=== PATIENT | male | born 1960 | race Caucasian/White ===

== ENCOUNTER 2017-10-18 00:44 | Emergency (ER) | payer OTHER ==
[~2017-10-18] VITALS: Ht 175.2 cm; Wt 68.0 kg
[~2017-10-18 00:44] MED LIST: ASPI-COR81 MG PO; HUMALOG100 U/ML SC; HYDROCODONE BIT1 T11 PO; MOTRIN800 MG PO
[2017-10-18 01:22] LABS: BASO # 0.1 10*3/uL (0.0-0.1); EOS # 0.1 10*3/uL (0.0-0.4); EOS % 1.4 % (1.0-4.0); HEMATOCRIT 37.4 % (42.0-52.0); HEMOGLOBIN 13.2 g/dl (14.0-18.0); LYMPH # 1.4 10*3/uL (1.3-4.4); LYMPH % 28.5 % (27.0-41.0); MEAN CELL VOLUME 90.8 fl (80.0-94.0); MEAN CORPUSCULAR HGB CONC 35.3 g/dl (33.0-37.0); MEAN PLATELET VOLUME 10.3 fl (9.6-12.3); MONO # 0.4 10*3/uL (0.1-1.0); MONO % 7.6 % (3.0-9.0); NEUT % 61.3 % (47.0-73.0); PLATELET COUNT AUTOMATED 183 10*3/uL (130-400); RED BLOOD COUNT 4.12 10*6/uL (4.50-5.90); RED CELL DISTRI WIDTH 12.7 % (0-14.5); WHITE BLOOD COUNT 4.9 10*3/uL (4.8-10.8)
[2017-10-18 01:43] LABS: ALBUMIN 3.4 gm/dl (3.1-4.5); ALKALINE PHOSPHATASE 178 U/L (45-117); BUN 16 mg/dl (7-24); CHLORIDE 106 mmol/L (98-107); CREATININE 0.89 mg/dL (0.70-1.30); POTASSIUM 3.7 mmol/L (3.5-5.1); SGOT/AST 17 IU/L (3-35); SGPT/ALT 20 U/L (12-78); SODIUM 140 mmol/L (136-145); TOTAL PROTEIN 6.2 gm/dL (6.4-8.2)
[2017-10-18 01:44] LABS: TROPONIN I < 0.015 ng/ml (<0.045)
[2017-10-18 02:40] LABS: BILIRUBIN NEGATIVE (NEGATIVE); BLOOD TRACE-INTACT (NEGATIVE); CLARITY CLEAR (CLEAR); COLOR YELLOW (YELLOW); GLUCOSE 3+ (NEGATIVE); KETONE NEGATIVE (NEGATIVE); LEUKO ESTERASE NEGATIVE (NEGATIVE); NITRITE NEGATIVE (NEGATIVE); PH 6.5 (5.0-9.0); SPECIFIC GRAVITY <= 1.005 (1.005-1.030)
[2017-10-18 02:47] LABS: BACTERIA TRACE; EPITHELIAL CELLS 0-2; WBC 0-2 wbc/hpf (0-5)
== END 2017-10-18 02:56 | disposition home or self-care (01) ==
LOC: ED 00:44
PROVIDERS: Emergency Medicine Emergency Medical Services
DX: G44.209 Tension-type headache, unspecified, not intractable (principal); F17.200 Nicotine dependence, unspecified, uncomplicated; Z91.040 Latex allergy status; Z79.82 Long term (current) use of aspirin; Z88.8 Allergy status to other drugs, medicaments and biological substances

== ENCOUNTER 2018-08-07 08:56 | Inpatient (IN) | payer OTHER ==
[~2018-08-07] VITALS: Ht 177.8 cm; Wt 63.2 kg
[2018-08-07] VITALS (32 sets, daily range): BP systolic 86–122; BP diastolic 37–63
--- NOTE | ~2018-08-07 | O ---
[place], [place] OPERATIVE NOTE [id number] UN[facility] #: [id number] ROOM: [facility]- DOCTOR: DENG MCINTOSH,CARLOS BIRTHDATE: [birth year] DOS: 08/09/2018 INDICATION: This is a 57-year-old gentleman, who has presented with diabetic ketoacidosis, admitted with multiple episodes of hematemesis, diabetes, hyperglycemia has been taking care of. He has been stabilized. PROCEDURE: Today's procedure part of investigation of hematemesis is panendoscopy plus photographic series and biopsy. PREMEDICATION: Propofol. SCOPE: Olympus forward-viewing gastroscope Q10 video. REPORT: After putting the patient in the left lateral position and application of lubricant to the scope, the scope was introduced. Thereafter, under direct visualization, advanced through the length of esophagus without difficulty. Distal esophageal ulcerations, which is occupying the whole lumen at the lower esophagus was photographed. This is secondary to reflux, hiatal hernia, approximately 3.5 cm was noticed. Gastric pouch was entered. Gastritis seen. Antral biopsy obtained. Duodenal bulb, second and third part within normal limits. The patient was gradually extubated. The distal ulcer, esophageal ulcers were not agitated due to apparent recent bleed. The patient extubated, tolerated procedure well. IMPRESSION: Distal esophageal ulcerations, hiatal hernia of 3.5 cm, gastritis, status post biopsy. PLAN AND DISCUSSION: This patient requires to remain on Protonix 40 mg daily. Extra Strength Gaviscon 1 at bedtime and 1800 ADA diet and follow up as outpatient. CARLOS VILCHIS MD CM:OPRECORD:OPERATIVE NOTE [id number] [id number] CARLOS VILCHIS MD 08/09/18 1431 interface
--- NOTE | ~2018-08-07 | WRIGHTHP ---
[place], [place] PATIENT HISTORY AND PHYSICAL EXAM NAME: ADÁN BROWN [facility] #: [id number] UNIT #: [id number] ROOM: 426 DOCTOR: DAVID EVERETT MD BIRTHDATE: [birth year] DOS: 08/07/2018 HISTORY OF PRESENT ILLNESS: The patient has been admitted to hospital with repeated vomiting and unable to keep anything in the abdomen for the last 3-4 days and he is a known case of insulin-dependent diabetes mellitus and he came to Emergency Department where he was found to have acute ketoacidosis with renal failure and uncontrolled diabetes mellitus and needed to be admitted to the hospital. ALLERGIES: He has history of allergic to ASPIRIN and HUMALOG. PAST MEDICAL HISTORY: Diabetes mellitus, tension headache. PAST SURGICAL HISTORY: Hernia repair 2 times, kidney stone and left elbow surgery. SOCIAL HISTORY: The patient does not drink any alcohol. Does not smoke. Does not use any drugs. FAMILY HISTORY: History of cancer and myocardial infarction in the family. The patient is feeling very weak and miserable due to repeated vomiting and he also vomited little bit blood in the vomitus today. It could be due to severe irritation due to vomiting. LABORATORY STUDIES: His electrocardiogram done in the emergency showed prolonged QT interval at baseline wander in lead V1. Lactic acid base level is 5.5, which is high. Protime 12.12. Comprehensive metabolic profile showed glucose 875, BUN 49, creatinine 2.52, GFR 27, potassium 5.3, sodium 138, CO2 level is 10 which is low. Bilirubin is 2.2, total protein 6.3, alkaline phosphatase 184. CK-MB and troponin levels are normal. Chest x-ray is normal. A pH is 7.54 indicating acidosis. CBC showed white count 25,300; hemoglobin 12.2; hematocrit 36.9; 92% neutrophils; 4% lymphocyte. Ketones are positive in 1-16 dilution. Gastric occult blood is positive. CT of the abdomen shows no acute fatty liver. Hemoglobin A1c 11.1 indicating the patient is having very uncontrolled diabetes mellitus. Repeat basic metabolic profile showed glucose 834, BUN 52, creatinine 2.53, GFR 26. Urine examination showed 3+ glucose, 1+ bilirubin, 3+ ketones and 2+ bacteria. PHYSICAL EXAMINATION: VITAL SIGNS: His blood pressure is 111/56, pulse 104, respirations 18, temperature 99.5. DIAGNOSES: Diabetic ketoacidosis and glucose toxicity due to uncontrolled diabetes, dehydration and renal failure, leukocytosis and urinary tract infection. The patient is being treated with pantoprazole 40 mg IV daily, sodium chloride IV at rapid rate to improve his dehydration and also his renal failure. Insulin regular, Humulin IV drip. Reglan 10 mg IV. [place], [place] PATIENT HISTORY AND PHYSICAL EXAM [id number] UN[facility] #: [id number] ROOM: 426 DOCTOR: DAVID EVERETT MD BIRTHDATE: [birth year] DAVID EVERETT MD CM:HISPHYS:PATIENT HISTORY AND PHYSICAL EXAMINATION [id number] DAVID EVERETT MD 08/21/18 0655 interface
--- NOTE | ~2018-08-07 | CON ---
[place], [place] REPORT OF CONSULTATION NAME: ADÁN BROWN [facility] #: [id number] UNIT #: [id number] ROOM: [facility] DOCTOR: CARLOS VILCHIS MD BIRTHDATE: [birth year] DOS: 08/08/2018 GASTROENDOSCOPIC CONSULTATION HISTORY OF PRESENT ILLNESS: A 57-year-old patient who has presented with nausea, vomiting, diabetic ketoacidosis, hematemesis and coffee-ground emesis. The patient has been kept in ICU for past few days. His original H and H was 12.2 and 36.9. His platelet has been normal. His comprehensive metabolic panel; initial glucose was 875 with elevated BUN and creatinine 49 and 2.9, GFR of 33, electrolyte imbalance and troponin negative. CBC differential periodically followed up and CT scan of the chest, abdomen and pelvis was obtained; severe fatty liver, no obstruction, was otherwise normal noticed. His urine culture was negative. Basic metabolic panel was reassessed. Corrections have been undertaken. Hypernatremia has been noticed post normal saline infusions. PAST MEDICAL HISTORY: Diabetes mellitus and cephalalgia. PAST SURGICAL HISTORY: Renal lithiasis urologic management, hernia repairs. ALLERGIES: TO ASPIRIN AND HUMALOG. SOCIAL HISTORY: Nonsmoker, nonalcohol consumer. FAMILY HISTORY: Coronary artery disease and multiple carcinomas. REVIEW OF SYSTEMS: HEENT: Denies double vision or blurred vision. RESPIRATORY: Denies acute shortness of breath. CARDIOVASCULAR: Denies acute chest pain. DIGESTIVE SYSTEM: Nausea and vomiting, which is under control of antiemetics as well as Protonix IV double-dose 40 mg each. PHYSICAL EXAMINATION: GENERAL: Relatively frail patient. HEENT: Head - normocephalic, nontraumatic. Mouth and buccal mucosa benign. NECK: Supple, no thyromegaly, no cervical lymphadenopathy. CHEST: Symmetric anatomy, equal expansion. No wheeze, no rhonchi. HEART: Normal sinus rhythm, no gallop, no murmur. ABDOMEN: Soft. No hepato-organomegaly. Bowel sounds within normal limit. No rebound effect. EXTREMITIES: No cyanosis, no pedal edema. NEUROLOGIC: Alert and oriented to time, place, person. IMPRESSION: Hematemesis and borderline drop in hemoglobin and hematocrit. PLAN AND DISCUSSION: Since we are unaware of the status of his stomach as well as need of PPI chronic therapy or otherwise, we are going to organize the EGD tomorrow now that his hyperglycemia is under control. Other adjunctive diagnoses as outlined above in paragraph of past medical and surgical history. [place], [place] REPORT OF CONSULTATION [facility] [id number] #: [id number] ROOM: [facility] DOCTOR: CARLOS VILCHIS MD BIRTHDATE: [birth year] CARLOS VILCHIS MD CM:CONSTR:REPORT OF CONSULTATION 1436 08/09/18 0036 interface
--- NOTE | ~2018-08-07 | EKG ---
[place], [place] ELECTROCARDIOGRAM REPORT NAME: ADÁN BROWN UNIT #: [id number] ROOM: [facility] DOCTOR: YOSI DRAFT REPORT BIRTHDATE: [birth year] [facility] Test Date: 2018-08-07 Test Time: 09:13:47 Pat Name: ADÁN BROWN Department: Room: [facility] Gender: M Commission Broker: TARA : 1960 Requested By: SUNNY CORONEL Order Number: [id number] Reading MD: Chase Garrido MD Measurements Intervals [place] Rate: 114 P: 67 [place]: 148 QRS: 80 QRSD: 110 T: 69 QT: 376 QTc: 518 Interpretive Statements Sinus tachycardia RSR' in V1 or V2, right VCD or RVH Prolonged QT interval Baseline wander in lead(s) V1 Electronically Signed On 08-08-2018 4:15:39 PDT by Chase Garrido MD CM:EKGRPT:ELECTROCARDIOGRAM REPORT 2 0415 SUNNY CORONEL EPIPHANY DRAFT REPORT SUNNY CORONLE
[~2018-08-07 08:56] MED LIST changes: -ASPI-COR81 MG PO; +ASPIRIN ADULT L81 MG PO
[2018-08-07 09:20] LABS: HEMATOCRIT 36.9 % (42.0-52.0); HEMOGLOBIN 12.2 g/dl (14.0-18.0); MEAN CELL VOLUME 98.1 fl (80.0-94.0); MEAN CORPUSCULAR HGB 32.4 pg (27.0-31.0); MEAN CORPUSCULAR HGB CONC 33.1 g/dl (33.0-37.0); MEAN PLATELET VOLUME 10.8 fl (9.6-12.3); PLATELET COUNT AUTOMATED 216 10*3/uL (130-400); RED BLOOD COUNT 3.76 10*6/uL (4.50-5.90); RED CELL DISTRI WIDTH 13.1 % (0-14.5); WHITE BLOOD COUNT 25.3 10*3/uL (4.8-10.8)
[2018-08-07 09:29] LABS: ACT PARTIAL THROMBO TIME 24.1 SECONDS (20.8-31.5); INTERNATIONAL NORM RATIO 1.1 (2.0-3.5)
[2018-08-07 09:36] LABS: ALBUMIN 3.4 gm/dl (3.1-4.5); ALKALINE PHOSPHATASE 184 U/L (45-117); BUN 49 mg/dl (7-24); CHLORIDE 100 mmol/L (98-107); CPK 82 U/L (39-308); CREATININE 2.51 mg/dL (0.70-1.30); LIPASE 73 U/L (73-393); POTASSIUM 5.3 mmol/L (3.5-5.1); SGOT/AST 14 IU/L (3-35); SGPT/ALT 28 U/L (12-78); SODIUM 138 mmol/L (136-145); TOTAL PROTEIN 6.3 gm/dL (6.4-8.2)
[2018-08-07 09:38] LABS: TROPONIN I < 0.015 ng/ml (<0.045)
[2018-08-07 09:49] LABS: BURR CELLS FEW; PLATELET SUFFICIENCY NORMAL (NORMAL); POLYCHROMASIA SLIGHT; TOTAL CELLS COUNTED 100 #CELLS
[2018-08-07 12:32] LABS: CREATININE 2.53 mg/dL (0.70-1.30)
[2018-08-07 12:32] LABS: HEMATOCRIT 33.1 % (42.0-52.0); HEMOGLOBIN 11.1 g/dl (14.0-18.0)
[2018-08-07 14:52] LABS: BILIRUBIN 1+ (NEGATIVE); BLOOD TRACE-INTACT (NEGATIVE); CLARITY CLEAR (CLEAR); COLOR YELLOW (YELLOW); GLUCOSE 3+ (NEGATIVE); KETONE 3+ (NEGATIVE); LEUKO ESTERASE NEGATIVE (NEGATIVE); NITRITE NEGATIVE (NEGATIVE); UROBILINOGEN 0.2 E.U./dl (0.2-1.0)
[2018-08-07] MEDS ORDERED: LIPITOR10 MG PO (14:52)
[2018-08-07] MEDS ORDERED: HUMULIN N100 UNIT/1 SQ (14:57)
[2018-08-07] MEDS ORDERED: HUMALOG100 UNIT/2 SQ (14:59)
[2018-08-07 15:00] LABS: BACTERIA 2+; EPITHELIAL CELLS 0-3; RBC 0-2 rbc/hpf (0-2); WBC 0-2 wbc/hpf (0-5)
[2018-08-07] MEDS ORDERED: GOOD NEIGHBOR150 M1 PO (15:00)
[2018-08-07 16:16] LABS: CREATININE 2.51 mg/dL (0.70-1.30); PHOSPHOROUS 1.3 mg/dL (2.5-4.9)
[2018-08-07 16:17] LABS: POTASSIUM 3.7 mmol/L (3.5-5.1)
[2018-08-07 18:57] LABS: HEMATOCRIT 31.9 % (42.0-52.0); HEMOGLOBIN 11.3 g/dl (14.0-18.0)
[2018-08-07 20:31] LABS: CREATININE 2.2 mg/dL (0.70-1.30); POTASSIUM 3.6 mmol/L (3.5-5.1)
[2018-08-08] VITALS: BP 101/57
[2018-08-08 01:08] LABS: CREATININE 1.79 mg/dL (0.70-1.30); POTASSIUM 4.1 mmol/L (3.5-5.1)
[2018-08-08 04:00] VITALS: BP 105/65
[2018-08-08 04:50] LABS: BASO % 0.2 % (0.0-1.0); EOS % 0.1 % (1.0-4.0); HEMATOCRIT 30.1 % (42.0-52.0); HEMOGLOBIN 10.5 g/dl (14.0-18.0); LYMPH # 0.7 10*3/uL (1.3-4.4); LYMPH % 3.6 % (27.0-41.0); MEAN CORPUSCULAR HGB 32.7 pg (27.0-31.0); MEAN CORPUSCULAR HGB CONC 34.9 g/dl (33.0-37.0); MEAN PLATELET VOLUME 10.2 fl (9.6-12.3); MONO # 1.1 10*3/uL (0.1-1.0); MONO % 5.9 % (3.0-9.0); NEUT # 16.3 10*3/uL (2.3-7.9); NEUT % 89.2 % (47.0-73.0); PLATELET COUNT AUTOMATED 171 10*3/uL (130-400); RED BLOOD COUNT 3.21 10*6/uL (4.50-5.90); RED CELL DISTRI WIDTH 13.4 % (0-14.5); WHITE BLOOD COUNT 18.3 10*3/uL (4.8-10.8)
[2018-08-08 05:01] LABS: MEAN CELL VOLUME 93.8 fl (80.0-94.0)
[2018-08-08 05:12] LABS: CREATININE 1.74 mg/dL (0.70-1.30); POTASSIUM 4.3 mmol/L (3.5-5.1)
[2018-08-08 08:00] VITALS: BP 93/59
[2018-08-08 11:17] LABS: CREATININE 1.59 mg/dL (0.70-1.30); POTASSIUM 4.1 mmol/L (3.5-5.1)
[2018-08-08 12:00] VITALS: BP 108/75
[2018-08-08 16:00] VITALS: BP 114/69
[2018-08-08 20:00] VITALS: BP 114/74
[2018-08-09] VITALS (9 sets, daily range): BP systolic 106–134; BP diastolic 50–75
[2018-08-09 10:14] LABS: CHLORIDE 112 mmol/L (98-107); POTASSIUM 4.2 mmol/L (3.5-5.1); SODIUM 145 mmol/L (136-145)
[2018-08-09 10:18] LABS: BUN 27 mg/dl (7-24)
[2018-08-10] VITALS: BP 122/73
[2018-08-10 06:43] LABS: BASO % 0.5 % (0.0-1.0); EOS % 0.7 % (1.0-4.0); HEMATOCRIT 32.5 % (42.0-52.0); HEMOGLOBIN 11.3 g/dl (14.0-18.0); LYMPH # 1.9 10*3/uL (1.3-4.4); LYMPH % 32.5 % (27.0-41.0); MEAN CELL VOLUME 92.9 fl (80.0-94.0); MEAN CORPUSCULAR HGB 32.3 pg (27.0-31.0); MEAN CORPUSCULAR HGB CONC 34.8 g/dl (33.0-37.0); MEAN PLATELET VOLUME 10.3 fl (9.6-12.3); MONO # 0.4 10*3/uL (0.1-1.0); MONO % 7.4 % (3.0-9.0); NEUT # 3.5 10*3/uL (2.3-7.9); NEUT % 58.6 % (47.0-73.0); PLATELET COUNT AUTOMATED 135 10*3/uL (130-400); RED CELL DISTRI WIDTH 12.8 % (0-14.5)
[2018-08-10 07:07] LABS: CHLORIDE 105 mmol/L (98-107)
[2018-08-10 07:14] LABS: ALKALINE PHOSPHATASE 155 U/L (45-117); BUN 20 mg/dl (7-24); CREATININE 0.85 mg/dL (0.70-1.30); SGOT/AST 31 IU/L (3-35); SGPT/ALT 27 U/L (12-78); TOTAL PROTEIN 5.4 gm/dL (6.4-8.2)
[2018-08-10 07:35] LABS: POTASSIUM 3.3 mmol/L (3.5-5.1); SODIUM 142 mmol/L (136-145)
[2018-08-10 08:00] VITALS: BP 122/74
[2018-08-10 10:21] LABS: BUN 18 mg/dl (7-24); CHLORIDE 106 mmol/L (98-107); CREATININE 0.82 mg/dL (0.70-1.30); PHOSPHOROUS 1.5 mg/dL (2.5-4.9); POTASSIUM 3.1 mmol/L (3.5-5.1); SODIUM 142 mmol/L (136-145)
== END 2018-08-10 10:57 | disposition home or self-care (01) | DRG 380 ==
LOC: ED 08:56 → EDHOLD 10:12 → ICCU 10:12 → EDHOLD 12:53 → ICCU 13:31 → 4E 08-09 17:55
PROVIDERS: Internal Medicine; Internal Medicine Gastroenterology; Nurse Practitioner Family
PROC: 0DB68ZX Excision of Stomach, Via Natural or Artificial Opening Endoscopic, Diagnostic (ICD-10-PCS; principal; 2018-08-09)
DX: K22.11 Ulcer of esophagus with bleeding (principal); E11.10 Type 2 diabetes mellitus with ketoacidosis without coma; R65.11 Systemic inflammatory response syndrome (SIRS) of non-infectious origin with acute organ dysfunction; N17.9 Acute kidney failure, unspecified; E87.0 Hyperosmolality and hypernatremia; N39.0 Urinary tract infection, site not specified; K29.71 Gastritis, unspecified, with bleeding; E80.6 Other disorders of bilirubin metabolism; E83.39 Other disorders of phosphorus metabolism; E83.51 Hypocalcemia; R82.71 Bacteriuria; R82.2 Biliuria; E83.41 Hypermagnesemia; D53.9 Nutritional anemia, unspecified; D72.829 Elevated white blood cell count, unspecified; E86.0 Dehydration; R00.0 Tachycardia, unspecified; E11.9 Type 2 diabetes mellitus without complications; K21.9 Gastro-esophageal reflux disease without esophagitis; K46.9 Unspecified abdominal hernia without obstruction or gangrene; R82.4 Acetonuria; E87.8 Other disorders of electrolyte and fluid balance, not elsewhere classified; I95.9 Hypotension, unspecified; Z88.8 Allergy status to other drugs, medicaments and biological substances; Z79.899 Other long term (current) drug therapy; Z79.4 Long term (current) use of insulin; Z87.442 Personal history of urinary calculi; Z82.49 Family history of ischemic heart disease and other diseases of the circulatory system; Z80.9 Family history of malignant neoplasm, unspecified

== ENCOUNTER → 2018-08-23 | Outpatient (CLI) | payer OTHER ==
[~2018-08-23] MED LIST changes: +GOOD NEIGHBOR150 M1 PO; +HUMALOG100 UNIT/2 SQ; +HUMULIN N100 UNIT/1 SQ; +LIPITOR10 MG PO
== END | disposition home or self-care (01) ==
LOC: RAD 08:00
DX: K92.0 Hematemesis (principal); R13.10 Dysphagia, unspecified

== ENCOUNTER 2019-10-02 14:19 | Inpatient (IN) | payer OTHER ==
[~2019-10-02] VITALS: Ht 178 cm; Wt 62.1 kg
[~2019-10-02 14:19] MED LIST changes: +FLOMAX0.4 MG PO; +NAPROSYN500 MG PO
[2019-10-02 14:42] LABS: BASO # 0.1 10*3/uL (0.0-0.1); BASO % 0.4 % (0.0-1.0); EOS % 0.1 % (1.0-4.0); HEMATOCRIT 45.1 % (42.0-52.0); LYMPH # 1.2 10*3/uL (1.3-4.4); LYMPH % 6.8 % (27.0-41.0); MEAN CELL VOLUME 96.6 fl (80.0-94.0); MEAN CORPUSCULAR HGB 32.1 pg (27.0-31.0); MEAN CORPUSCULAR HGB CONC 33.3 g/dl (33.0-37.0); MEAN PLATELET VOLUME 10.6 fl (9.6-12.3); MONO # 0.5 10*3/uL (0.1-1.0); NEUT # 15.1 10*3/uL (2.3-7.9); PLATELET COUNT AUTOMATED 255 10*3/uL (130-400); RED BLOOD COUNT 4.67 10*6/uL (4.50-5.90); RED CELL DISTRI WIDTH 12.5 % (0-14.5)
[2019-10-02 14:52] LABS: ACT PARTIAL THROMBO TIME 22.2 SECONDS (20.0-32.1); INTERNATIONAL NORM RATIO 0.9 (2.0-3.5)
[2019-10-02 14:58] LABS: ALBUMIN 3.9 gm/dl (3.1-4.5); ALKALINE PHOSPHATASE 198 U/L (45-117); BUN 31 mg/dl (7-24); CHLORIDE 100 mmol/L (98-107); CREATININE 2.11 mg/dL (0.70-1.30); LIPASE 42 U/L (73-393); POTASSIUM 5.2 mmol/L (3.5-5.1); SGOT/AST 16 IU/L (3-35); SGPT/ALT 28 U/L (12-78); SODIUM 136 mmol/L (136-145); TOTAL PROTEIN 7.3 gm/dL (6.4-8.2)
[2019-10-02 15:00] LABS: ETHYL ALCOHOL < 3.0 mg/dl (<3); TROPONIN I < 0.015 ng/ml (<0.045)
--- NOTE | 2019-10-02 15:00 | NUR ---
NOTIFIED BY LAB PTS GLUCOSE 556,LACTIC ACID 4.1. DR WEISS NOTIFIED.
[2019-10-02 15:05] VITALS: BP 110/52
[2019-10-02 15:43] VITALS: BP 110/58
[2019-10-02 16:07] VITALS: BP 95/57
--- NOTE | 2019-10-02 16:07 | NUR ---
A 58, admitted to ICCU, under the services of JAQUI Mcclelland MD with a diagnosis of DKA. Chief complaint is nausea and vomiting since tuesday. Patient arrived via stretcher from ER. Monitor applied. Initial assessment completed. Vital signs taken and recorded. JAQUI MCCLELLAND MD notified of admission to the unit. Orders received. See assessment for past medical history, medications and allergies. Patient and/or family oriented to unit. [facility] ICCU visitation policy reviewed. Clothing/patient valuable form completed. MARY ROLDAN
--- NOTE | 2019-10-02 17:29 | NUR ---
Dr. Groves in to [facility].
[2019-10-02 17:55] LABS: CREATININE 1.87 mg/dL (0.70-1.30); POTASSIUM 4.2 mmol/L (3.5-5.1)
[2019-10-02 18:48] LABS: ABG O2 SATURATION 96.2 % (95-97); ARTERIAL BLOOD GAS PCO2 23.5 mmHg (35-45); ARTERIAL BLOOD GAS PH 7.291 (7.35-7.45); ARTERIAL BLOOD GAS PO2 82.2 mmHg (80-90)
[2019-10-02 18:49] LABS: ABG BASE EXCESS -13.9 mmol/L (-2.0-2.0)
[2019-10-02 20:00] VITALS: BP 90/55
--- NOTE | 2019-10-02 21:15 | NUR ---
ZOFRAN GIVEN PER PATIENT REQUEST FOR COMPLAINTS OF NAUSEA. WILL ASSESS EFFECTIVENESS.
--- NOTE | 2019-10-02 21:54 | NUR ---
ZOFRAN EFFECTIVE PER PATIENT. RESTING QUIETLY IN BED. NO OTHER COMPLAINTS AT THIS TIME. WILL CONTINUE TO MONITOR.
[2019-10-02 22:46] LABS: CREATININE 1.54 mg/dL (0.70-1.30); POTASSIUM 3.6 mmol/L (3.5-5.1)
--- NOTE | 2019-10-02 23:23 | NUR ---
SPOKE WITH DR MATOS REGARDING PATIENT, ORDERS RECIEVED
[2019-10-02 23:35] LABS: BILIRUBIN 2+ (NEGATIVE); BLOOD TRACE-INTACT (NEGATIVE); CLARITY CLEAR (CLEAR); COLOR YELLOW (YELLOW); GLUCOSE 2+ (NEGATIVE); KETONE 3+ (NEGATIVE); LEUKO ESTERASE NEGATIVE (NEGATIVE); NITRITE NEGATIVE (NEGATIVE); PH 5.5 (5.0-9.0); SPECIFIC GRAVITY 1.025 (1.005-1.030); UROBILINOGEN 0.2 E.U./dl (0.2-1.0)
[2019-10-02 23:44] LABS: BACTERIA 1+; COARSE GRANULAR CAST 0-2; RBC 0-2 rbc/hpf (0-2); URINE AMPHETAMINES < 1000 (1000ng/ml); URINE BARBITURATES < 200 (200ng/ml); URINE BENZODIAZEPINES < 200 (200ng/ml); URINE CANNABINOIDS (THC) < 50 (50ng/ml); URINE COCAINE < 300 (300ng/ml); URINE METHADONE < 300 (300ng/ml); URINE OPIATES < 300 (300ng/ml)
[2019-10-02 23:45] LABS: URINE PHENCYCLIDINE < 25 (25ng/ml)
[2019-10-03] VITALS: BP 95/53
--- NOTE | 2019-10-03 01:30 | NUR ---
PATIENT PROVIDED WITH ICE CHIPS PER REQUEST AFTER RN ENCOURAGING PATIENT TO TRY TO EAT SOMETHING. PATIENT EXPERIENCED SOME NAUSEA BUT STATES HE CANNOT TRY TO EAT ANYMORE OF THEM. RN WILL CONTINUE TO MONITOR
[2019-10-03 02:11] LABS: BUN 27 mg/dl (7-24); CHLORIDE 118 mmol/L (98-107); CREATININE 1.45 mg/dL (0.70-1.30); POTASSIUM 4.1 mmol/L (3.5-5.1); SODIUM 145 mmol/L (136-145)
--- NOTE | 2019-10-03 03:05 | NUR ---
EMESIS BASIN EMPTIED AT THIS TIME, APPROXIMATELY 50ML OR DARK BROWN LIQUID EMPTIED. PATIENT STATES THATS WHAT HIS VOMIT LOOKED LIKE THE LAST COUPLE OF TIMES, HE IS UNSURE OF WHAT HE LAST ATE AND WHEN. STATESHE IS FEELING BETTER THAN EARLIER
[2019-10-03 04:00] VITALS: BP 108/58
--- NOTE | 2019-10-03 04:54 | NUR ---
PATIENT CONTINUES TO REFUSE TO TRY TO EAT. STATES HE IS TOO NAUSEATED. MEDICATION WAS GIVEN EARLIER, WILL REMEDICATE AND TRY TO ENCOURAGE PATIENT TO EAT LATER.
[2019-10-03 06:29] LABS: ALBUMIN 2.8 gm/dl (3.1-4.5); ALKALINE PHOSPHATASE 134 U/L (45-117); BUN 24 mg/dl (7-24); CHLORIDE 117 mmol/L (98-107); CREATININE 1.29 mg/dL (0.70-1.30); PHOSPHOROUS 1.5 mg/dL (2.5-4.9); POTASSIUM 3.7 mmol/L (3.5-5.1); SGOT/AST 12 IU/L (3-35); SGPT/ALT 20 U/L (12-78); SODIUM 145 mmol/L (136-145); TOTAL PROTEIN 5.2 gm/dL (6.4-8.2)
[2019-10-03 06:43] LABS: HEMATOCRIT 33.4 % (42.0-52.0); HEMOGLOBIN 11.7 g/dl (14.0-18.0); MEAN CELL VOLUME 93.8 fl (80.0-94.0); MEAN CORPUSCULAR HGB 32.9 pg (27.0-31.0); MEAN PLATELET VOLUME 10.7 fl (9.6-12.3); PLATELET COUNT AUTOMATED 195 10*3/uL (130-400); RED BLOOD COUNT 3.56 10*6/uL (4.50-5.90); RED CELL DISTRI WIDTH 12.6 % (0-14.5); WHITE BLOOD COUNT 12.5 10*3/uL (4.8-10.8)
[2019-10-03 07:20] LABS: PLATELET SUFFICIENCY NORMAL (NORMAL); TOTAL CELLS COUNTED 100 #CELLS
--- NOTE | 2019-10-03 07:45 | NUR ---
PT C/O NAUSEA NOT RELIEVED WITH EARLIER ZOFRAN. PT STATES "EVERY TIME I SIT UP I THROW UP." PT UNABLE TO GO TO ULTRASOUND AT THIS TIME. BEDSIDE GLUCOSE 95. INSULIN GTT DECREASED TO 1 UNIT/HR. WILL UPDATE DOCTOR.
[2019-10-03 08:00] VITALS: BP 98/55
--- NOTE | 2019-10-03 08:20 | NUR ---
DR WHALEN UPDATED ON PT'S LABS AND DECREASE IN INSULIN GTT TO 1 UNIT HOUR. NO NEW ORDERS RECEIVED.
[2019-10-03 10:35] LABS: BUN 26 mg/dl (7-24); CHLORIDE 118 mmol/L (98-107); CREATININE 1.15 mg/dL (0.70-1.30); POTASSIUM 3.6 mmol/L (3.5-5.1); SODIUM 146 mmol/L (136-145)
--- NOTE | 2019-10-03 11:15 | NUR ---
UPDATED DR PALENCIA ON PT'S LABS AND NEED FOR FURTHER IV FLUID ORDERS. NEW ORDERS RECEIVED. MEDICATED PT PER PRN ORDER WITH ZOFRAN FOR C/O NAUSEA.
--- NOTE | 2019-10-03 11:47 | NUR ---
DR MATOS IN TO SEE PT. UPDATED HIM ON PT'S CONTINUED VOMITING EVEN AFTER ZOFRAN GIVEN. DR MATOS SHOWN PT'S DARK BROWN EMESIS. NEW ORDERS RECEIVED.
[2019-10-03 12:00] VITALS: BP 107/60
--- NOTE | 2019-10-03 12:22 | NUR ---
IV PROTONIX AND REGLAN GIVEN PER ORDER.
--- NOTE | 2019-10-03 12:28 | NUR ---
MESSAGE LEFT ON DR VILCHIS'S PHONE TO CALL FOR NEW CONSULT.
--- NOTE | 2019-10-03 12:31 | NUR ---
Journalists And Other Writers in to talk to patient. Patient states lives at home with his handicap daughter. His girlfriend checks in on him. There are 5-7 steps in the home. Physician: Dr. Glenn Groves [facility] Home health services: none Patient's level of ADLs: INDEPENDENT Patient has working utilities: yes DME: none Follow-up physician's appointment after d/c: he prefers to make his own follow up appt after discharge Does patient want to access PORTAL?: no Discharge plan discussed with patient and his girlfriend who is sitting at the bedside. He lives at home with his handicap daughter. He is independent in his ADLs and ambulation. Discussed home health care services and he denies any home needs at this time. When medically stable he will be discharged to home. His son will provide transportation on discharge. He is currently on an insulin drip and BSG q1h. ALPESH CUELLO
--- NOTE | 2019-10-03 13:58 | NUR ---
DR VILCHIS IN TO SEE PT. UPDATED HIM ON PT'S CONDITION AND PLAN OF CARE. NEW ORDERS RECEIVED. PT STILL C/O SOME NAUSEA. EARLIER ZOFRAN NOT ENTIRELY EFFECTIVE.
[2019-10-03 14:31] LABS: BUN 23 mg/dl (7-24); CHLORIDE 116 mmol/L (98-107); CREATININE 1.12 mg/dL (0.70-1.30); POTASSIUM 3.7 mmol/L (3.5-5.1); SODIUM 143 mmol/L (136-145)
--- NOTE | 2019-10-03 14:50 | NUR ---
DR PALENCIA IN TO SEE PT. UPDATED HER ON PT'S CONDITION,LABS AND PLAN OF CARE. NEW ORDERS RECEIVED.
--- NOTE | 2019-10-03 14:53 | NUR ---
Nutritional Support Services Note: Pt has c/o nausea. Unable to eat. Dx of DKA. Hx of DM. Will continue to follow. Advance diet as tolerated. IVF continue. Trang Coronado Rdn Ld
--- NOTE | 2019-10-03 15:23 | NUR ---
MEDICATED PT PER PRN ORDER WITH PHENERGAN FOR C/O NAUSEA.
[2019-10-03 16:00] VITALS: BP 102/56
--- NOTE | 2019-10-03 16:23 | NUR ---
BEDSIDE GLUCOSE 167. INSULIN GTT INCREASED TO 2 UNITS/HR. PT ABLE TO TAKE PO CARAFATE. EARLIER PHENERGAN WORKED "SOME".
[2019-10-03 18:09] LABS: BUN 22 mg/dl (7-24); CHLORIDE 114 mmol/L (98-107); CREATININE 1.14 mg/dL (0.70-1.30); POTASSIUM 3.6 mmol/L (3.5-5.1); SODIUM 142 mmol/L (136-145)
--- NOTE | 2019-10-03 18:37 | NUR ---
[facility] START[facility] PER ORDER.
[2019-10-03 20:00] VITALS: BP 113/57
--- NOTE | 2019-10-03 20:06 | NUR ---
PT RESTING. PT DENIES NAUSEA AT PRESENT TIME. PREVIOUS MUSCLE CRAMPING IS BETTER ALSO. IV KPHOS BOLUS IV INSULIN GTT AND IV D5.45 W/ 20 MEQ KCL CONTINUES TO INFUSE WITHOUT DIFFICULTY.
--- NOTE | 2019-10-03 22:12 | NUR ---
PT SITTING ON THE SIDE OF THE BED PLAYING A VIDEO GAME ON HIS PHONE. PT ABLE TO TAKE SIPS OF WATER WITHOUT NAUSEA.
[2019-10-03 23:22] LABS: BUN 21 mg/dl (7-24); CHLORIDE 118 mmol/L (98-107); CREATININE 1.17 mg/dL (0.70-1.30); POTASSIUM 3.8 mmol/L (3.5-5.1); SODIUM 147 mmol/L (136-145)
[2019-10-04] VITALS: BP 98/56
--- NOTE | 2019-10-04 00:37 | NUR ---
0000 RESTING IN BED WITH EYES CLOSED. APPEARS TO BE SLEEPING. CALL LIGHT IN REACH. PULSE OX 96% ON RA. NO C/O'S NAUSEA OR PAIN VOICED AT PRESENT TIME. INSULIN GTT CONT AND IV FLUIDS MAINTAINED. SEE INTERVENTION SCREEN FOR Q2H BEDSIDE BLOOD SUGARS. HEP LOCK INTACT LW.
[2019-10-04 04:00] VITALS: BP 88/48
[2019-10-04 05:11] LABS: ALBUMIN 2.6 gm/dl (3.1-4.5); ALKALINE PHOSPHATASE 112 U/L (45-117); BUN 17 mg/dl (7-24); CHLORIDE 117 mmol/L (98-107); CREATININE 0.96 mg/dL (0.70-1.30); PHOSPHOROUS 2.2 mg/dL (2.5-4.9); POTASSIUM 3.4 mmol/L (3.5-5.1); SGOT/AST 16 IU/L (3-35); SGPT/ALT 19 U/L (12-78); SODIUM 146 mmol/L (136-145); TOTAL PROTEIN 4.8 gm/dL (6.4-8.2)
[2019-10-04 06:14] LABS: BASO % 0.4 % (0.0-1.0); EOS % 0.1 % (1.0-4.0); HEMATOCRIT 32.4 % (42.0-52.0); HEMOGLOBIN 11.1 g/dl (14.0-18.0); LYMPH # 1.9 10*3/uL (1.3-4.4); LYMPH % 23.3 % (27.0-41.0); MEAN CELL VOLUME 94.7 fl (80.0-94.0); MEAN CORPUSCULAR HGB 32.5 pg (27.0-31.0); MEAN CORPUSCULAR HGB CONC 34.3 g/dl (33.0-37.0); MEAN PLATELET VOLUME 10.8 fl (9.6-12.3); MONO # 0.5 10*3/uL (0.1-1.0); MONO % 6.3 % (3.0-9.0); NEUT # 5.6 10*3/uL (2.3-7.9); NEUT % 69.8 % (47.0-73.0); PLATELET COUNT AUTOMATED 160 10*3/uL (130-400); RED BLOOD COUNT 3.42 10*6/uL (4.50-5.90); RED CELL DISTRI WIDTH 13.1 % (0-14.5)
[2019-10-04 08:00] VITALS: BP 90/55
--- NOTE | 2019-10-04 10:30 | NUR ---
Process Stripper in to see patient. No new needs or request at this time. He denies any home needs. When medically stable he will be discharged to home. Dr. Carl consulted and treating Hgb drop from 15 to 11.1 with protonix, carafate, reglan, and gaviscon. IVFs. N/V. He is scheduled fro an EGD on Tuesday. Phos 2.2 and K 3.4, receiving supplements. Anion gap closed, insulin gtt remains. Dr. Willingham consulted.
[2019-10-04 12:00] VITALS: BP 90/55
[2019-10-04 16:00] VITALS: BP 118/64
[2019-10-04 20:00] VITALS: BP 115/67
--- NOTE | 2019-10-04 20:24 | NUR ---
RESTING IN WATCHING TV. NO C/O'S VOICED. NO NAUSEA/VOMITING NOTED. IV FLUIDS CONT.
[2019-10-05] VITALS: BP 107/64
[2019-10-05 04:00] VITALS: BP 114/66
--- NOTE | 2019-10-05 04:15 | NUR ---
RESTING IN BED WITH EYES CLOSED. APPEARS TO BE SLEEPING.
--- NOTE | 2019-10-05 04:38 | NUR ---
BEDSIDE BLOOD SUGAR CHECK WAS 31. RECHECK IS 27. PT EATING PEANUT BUTTER CRACKERS AND DRINKING OJ. ALERT AND ORIENTED. SKIN W/D. DR. GTZ HERE AND AWARE. 250CC D10 GIVEN ORDERED. STAT REFLEX ORDERED. WILL MONITOR.
[2019-10-05 04:55] LABS: ALBUMIN 2.9 gm/dl (3.1-4.5); ALKALINE PHOSPHATASE 122 U/L (45-117); CHLORIDE 115 mmol/L (98-107); CREATININE 0.75 mg/dL (0.70-1.30); PHOSPHOROUS 2.6 mg/dL (2.5-4.9); POTASSIUM 3.2 mmol/L (3.5-5.1); SGOT/AST 21 IU/L (3-35); SGPT/ALT 19 U/L (12-78); SODIUM 146 mmol/L (136-145); TOTAL PROTEIN 5.2 gm/dL (6.4-8.2)
[2019-10-05 04:57] LABS: BUN 7 mg/dl (7-24)
--- NOTE | 2019-10-05 06:21 | NUR ---
STAT RELFEX WAS 40. BEDSIDE BLOOD SUGAR CHECKED NOW AND IS 200. IV FLUIDS CONT. PT RESTING IN BED WATCHING TV. REMAINS WITHOUT C/O'S. CONDITION GUARDED.
[2019-10-05 06:34] LABS: BASO % 0.4 % (0.0-1.0); EOS # 0.1 10*3/uL (0.0-0.4); EOS % 0.9 % (1.0-4.0); HEMOGLOBIN 12.2 g/dl (14.0-18.0); LYMPH # 2.7 10*3/uL (1.3-4.4); LYMPH % 38.8 % (27.0-41.0); MEAN CELL VOLUME 94.5 fl (80.0-94.0); MEAN CORPUSCULAR HGB CONC 33.9 g/dl (33.0-37.0); MEAN PLATELET VOLUME 10.8 fl (9.6-12.3); MONO # 0.6 10*3/uL (0.1-1.0); NEUT # 3.6 10*3/uL (2.3-7.9); NEUT % 51.5 % (47.0-73.0); PLATELET COUNT AUTOMATED 167 10*3/uL (130-400); RED BLOOD COUNT 3.81 10*6/uL (4.50-5.90); RED CELL DISTRI WIDTH 12.8 % (0-14.5); WHITE BLOOD COUNT 6.9 10*3/uL (4.8-10.8)
[2019-10-05 07:59] VITALS: BP 113/64
--- NOTE | 2019-10-05 11:00 | NUR ---
Ceramics Technician in to see patient. No new needs or request at this time. He denies any home needs. When medically stable he will be discharged to home. Dr. Carl and Dr. hopson following. Refusing EGD. Hgb 12.2 up from 11.1 yesterday. Treating with protonix, carafate, reglan, and gaviscon. IVFs. Insulin gtt discontinued, SSI.
--- NOTE | 2019-10-05 11:33 | NUR ---
BEDSIDE GLUCOSE RESULT OF 38. REPEAT BS OF 34. REFLEX GLUCOSE ORDERED.
--- NOTE | 2019-10-05 11:46 | NUR ---
PATIENT MEDICATED WITH D10 PER PRN ORDER FOR HYPOGLYCEMIA.
[2019-10-05 12:00] VITALS: BP 106/60
[2019-10-05 16:00] VITALS: BP 132/78
--- NOTE | 2019-10-05 19:10 | NUR ---
REPORT RECEIVED FROM DAYLIGHT NURSE. PT AWAKE AT THIS TIME. RESPIRATIONS EASY, IV FLUIDS INFUSING WITHOUT DIFFICULTY. CALL LIGHT IN REACH.
[2019-10-05 20:00] VITALS: BP 113/76
--- NOTE | 2019-10-05 23:00 | NUR ---
PT SLEEPING AT THIS TIME. NO SIGNS OF DISTRESS. CALL LIGHT IN REACH.
[2019-10-06] VITALS: BP 119/78
--- NOTE | 2019-10-06 03:00 | NUR ---
PT SLEEPING AT THIS TIME.
[2019-10-06 07:09] LABS: BASO % 0.5 % (0.0-1.0); EOS # 0.1 10*3/uL (0.0-0.4); EOS % 2.1 % (1.0-4.0); HEMATOCRIT 33.8 % (42.0-52.0); HEMOGLOBIN 11.7 g/dl (14.0-18.0); LYMPH # 1.7 10*3/uL (1.3-4.4); LYMPH % 29.2 % (27.0-41.0); MEAN CELL VOLUME 92.3 fl (80.0-94.0); MEAN CORPUSCULAR HGB CONC 34.6 g/dl (33.0-37.0); MONO # 0.5 10*3/uL (0.1-1.0); MONO % 8.2 % (3.0-9.0); NEUT # 3.5 10*3/uL (2.3-7.9); NEUT % 59.8 % (47.0-73.0); PLATELET COUNT AUTOMATED 149 10*3/uL (130-400); RED BLOOD COUNT 3.66 10*6/uL (4.50-5.90); RED CELL DISTRI WIDTH 12.5 % (0-14.5); WHITE BLOOD COUNT 5.8 10*3/uL (4.8-10.8)
[2019-10-06 07:36] LABS: ALBUMIN 2.7 gm/dl (3.1-4.5); BUN 7 mg/dl (7-24); CHLORIDE 105 mmol/L (98-107); SODIUM 136 mmol/L (136-145); TOTAL PROTEIN 5.1 gm/dL (6.4-8.2)
[2019-10-06 07:38] LABS: ALKALINE PHOSPHATASE 137 U/L (45-117); CREATININE 0.83 mg/dL (0.70-1.30); SGOT/AST 18 IU/L (3-35); SGPT/ALT 20 U/L (12-78)
[2019-10-06 07:47] LABS: POTASSIUM 4.3 mmol/L (3.5-5.1)
[2019-10-06 08:00] VITALS: BP 116/64
[2019-10-06] MEDS ORDERED: Vitamin D PO (09:40)
--- NOTE | 2019-10-06 10:30 | NUR ---
Discharge instructions reviewed with patient/family. Patient receptive and verbalizes understanding. Follow-up care arranged. Written instructions given to patient/family. HEPLOCK DISCONTINUED. PATIENT AMBULATORY OFF FLOOR. TINA VALENTE
== END 2019-10-06 10:30 | disposition home or self-care (01) | DRG 420 ==
LOC: ED 14:19 → ICCU 15:32 → EDHOLD 15:32 → ICCU 15:44 → 4E 10-05 14:46
PROVIDERS: Emergency Medicine; Internal Medicine; ADMIT Internal Medicine
DX: E10.10 Type 1 diabetes mellitus with ketoacidosis without coma (principal); N17.9 Acute kidney failure, unspecified; F17.210 Nicotine dependence, cigarettes, uncomplicated; E87.0 Hyperosmolality and hypernatremia; E87.8 Other disorders of electrolyte and fluid balance, not elsewhere classified; I95.9 Hypotension, unspecified; E87.6 Hypokalemia; E44.0 Moderate protein-calorie malnutrition; D72.829 Elevated white blood cell count, unspecified; D72.810 Lymphocytopenia; E87.5 Hyperkalemia; E80.6 Other disorders of bilirubin metabolism; E83.42 Hypomagnesemia; K31.84 Gastroparesis; D72.818 Other decreased white blood cell count; R10.9 Unspecified abdominal pain; K57.90 Diverticulosis of intestine, part unspecified, without perforation or abscess without bleeding; E10.43 Type 1 diabetes mellitus with diabetic autonomic (poly)neuropathy; E78.5 Hyperlipidemia, unspecified; E10.649 Type 1 diabetes mellitus with hypoglycemia without coma; E83.51 Hypocalcemia; E83.39 Other disorders of phosphorus metabolism; Z71.6 Tobacco abuse counseling; Z88.8 Allergy status to other drugs, medicaments and biological substances; Z87.442 Personal history of urinary calculi; Z82.49 Family history of ischemic heart disease and other diseases of the circulatory system; Z80.6 Family history of leukemia; Z79.82 Long term (current) use of aspirin; Z68.1 Body mass index [BMI] 19.9 or less, adult

== ENCOUNTER 2020-03-09 20:32 | Inpatient (IN) | payer OTHER ==
[~2020-03-09] VITALS: Ht 175.3 cm; Wt 66.4 kg
[~2020-03-09 20:32] MED LIST changes: +Vitamin D PO
[2020-03-09 20:44] VITALS: BP 100/65
[2020-03-09 21:00] VITALS: BP 94/64
[2020-03-09 21:36] LABS: BASO # 0.1 10*3/uL (0.0-0.1); BASO % 0.7 % (0.0-1.0); EOS % 0.1 % (1.0-4.0); HEMATOCRIT 41.1 % (42.0-52.0); LYMPH # 1.2 10*3/uL (1.3-4.4); LYMPH % 14.9 % (27.0-41.0); MEAN CELL VOLUME 93.2 fl (80.0-94.0); MEAN CORPUSCULAR HGB 31.3 pg (27.0-31.0); MEAN CORPUSCULAR HGB CONC 33.6 g/dl (33.0-37.0); MEAN PLATELET VOLUME 9.9 fl (9.6-12.3); MONO # 0.5 10*3/uL (0.1-1.0); MONO % 5.6 % (3.0-9.0); NEUT # 6.5 10*3/uL (2.3-7.9); NEUT % 78.3 % (47.0-73.0); PLATELET COUNT AUTOMATED 215 10*3/uL (130-400); RED BLOOD COUNT 4.41 10*6/uL (4.50-5.90); RED CELL DISTRI WIDTH 12.4 % (0-14.5); WHITE BLOOD COUNT 8.3 10*3/uL (4.8-10.8)
[2020-03-09 21:54] LABS: ALBUMIN 3.6 gm/dl (3.1-4.5); ALKALINE PHOSPHATASE 212 U/L (45-117); BUN 36 mg/dl (7-24); CHLORIDE 101 mmol/L (98-107); CREATININE 1.64 mg/dL (0.70-1.30); POTASSIUM 5.4 mmol/L (3.5-5.1); SGOT/AST 15 IU/L (3-35); SGPT/ALT 28 U/L (12-78); SODIUM 138 mmol/L (136-145); TOTAL PROTEIN 6.8 gm/dL (6.4-8.2)
[2020-03-09 21:55] LABS: TROPONIN I < 0.015 ng/ml (<0.045)
[2020-03-09 22:00] VITALS: BP 124/72
--- NOTE | 2020-03-09 22:00 | NUR ---
Pt aware of urine needed and states he does not have to void.
--- NOTE | 2020-03-09 22:40 | NUR ---
Pt currently sleeping at this time.
--- NOTE | 2020-03-09 22:48 | NUR ---
aware of blood sugar of 413.
--- NOTE | 2020-03-09 23:15 | NUR ---
Pt states he had some nausea at this time but is ok.
[2020-03-09 23:25] LABS: BILIRUBIN NEGATIVE (NEGATIVE); BLOOD NEGATIVE (NEGATIVE); CLARITY CLEAR (CLEAR); COLOR YELLOW (YELLOW); GLUCOSE 2+ (NEGATIVE); KETONE 3+ (NEGATIVE); LEUKO ESTERASE NEGATIVE (NEGATIVE); NITRITE NEGATIVE (NEGATIVE); SPECIFIC GRAVITY 1.015 (1.005-1.030); UROBILINOGEN 0.2 E.U./dl (0.2-1.0)
[2020-03-09 23:26] VITALS: BP 129/79
[2020-03-09 23:26] LABS: RBC 0-2 rbc/hpf (0-2)
--- NOTE | 2020-03-09 23:27 | NUR ---
In to see pt at this time and pt states his nausea is better.
[2020-03-10] VITALS (7 sets, daily range): BP systolic 93–145; BP diastolic 53–76
--- NOTE | 2020-03-10 | NUR ---
aware of pt blood sugar of 400 and nausea at this time.Orders for 4 mg of zofran.Aware of pt with no bed at this time.
--- NOTE | 2020-03-10 00:10 | NUR ---
Pt had medium brown emesis noted on arrival to room.Pt medicated at this time.
--- NOTE | 2020-03-10 00:51 | NUR ---
Pt sleeping after zofran at this time and pt still waiting on bed at this time.
--- NOTE | 2020-03-10 01:00 | NUR ---
PT HAD ONE EMESIS NOTED PRIOR TO TRANSFER TO ICU.
--- NOTE | 2020-03-10 01:10 | NUR ---
A 59, admitted to ICCU, under the services of JAQUI Mcclelland MD with a diagnosis of DKA. Chief complaint is NAUSEA AND VOMITING. Patient arrived via bed from ER. Monitor applied. Initial assessment completed. Vital signs taken and recorded. JAQUI MCCLELLAND MD notified of admission to the unit. Orders received. See assessment for past medical history, medications and allergies. Patient and/or family oriented to unit. [facility] ICCU visitation policy reviewed. Clothing/patient valuable form completed. CALL LIGHT SYSTEM REVIEWED AND DEMONSTRATED NEVA BENAVIDES
--- NOTE | 2020-03-10 07:21 | NUR ---
ADÁN BROWN [id number] Please refer to the physician's history and physical for past medical history, comorbid conditions, and allergies. Diagnosis: DKA TYPE 1 Nilton Score: 22,LOW OR NO RISK WOUND DESCRIPTIONS: Wound Number: 1 Location of the wound: Left lower extremity Type of wound: scab Thickness: Partial Size: 1.1cm x 1.5cm x <0.1cm Tunneling: none Undermining: none Sinus Tract: none Presence of Exudate: none Amount: None Color: Red, brown Odor: None Periwound Skin Appearance: Normal Wound edges: erythema Pain (associated with wound): none at time of assessment How does patient state this happened? pt stated bumped his leg about 1 week ago in the garage Surface the patient is resting on: Isoflex SKIN PREVENTION RECOMMENDATION: 1. Pressure redistribution support surface as appropriate 2. Elevate heels 3. Remove boots/TEDS every shift and reapply 4. Head of bed 30 degrees as tolerated 5. Assess nutrition and hydration 6. Manage moisture 7. Avoid the use of containment devices while in bed 8. Use absorptive products on surfaces limit layers of linens on bed 9. Turn and reposition every 1-2 hours in bed and every 1 hour in chair as tolerated 10. Weight shifts every 15 minutes while up in chair 11. Offloading with pillows or device to keep heels elevated off bed 12. Monitor skin at least every shift 13. Inspect under medical devices twice a day WOUND TREATMENT RECOMMENDATIONS: Partial thickness guidelines: Cleanse left lower extremity anterior with nss and apply sureprep around the wound hydrogel to wound bed and cover with optifoam gentle every 2 days and prn for soiling
--- NOTE | 2020-03-10 08:00 | NUR ---
REMAINS ON INSULIN DRIP AT 2UNITS PER HOUR, PT NOT WANTING TO EAT RIGHT NOW
--- NOTE | 2020-03-10 09:26 | NUR ---
Left voicemail on Dr. Groves's resident cell phone [phone] for wound care recommendations.
--- NOTE | 2020-03-10 11:57 | NUR ---
Inside Sales Territory Manager in to talk to patient. Patient states lives at home with his handicap daughter. His girlfriend checks in on him. There are 5-7 steps in the home. Physician: Dr. Glenn Groves [facility] Home health services: none Patient's level of ADLs: INDEPENDENT Patient has working utilities: yes DME: none Follow-up physician's appointment after d/c: he prefers to make his own follow up appt after discharge Does patient want to access PORTAL?: no Discharge plan discussed with patient. He lives at home with his handicap daughter and his girlfriend checking in on him. He is independent in his ADLs and ambulation. Discussed home health care services and he denies any home needs at this time. When medically stable he will be discharged to home. He states his son will provide transportation on discharge. ALPESH CUELLO
--- NOTE | 2020-03-10 12:26 | NUR ---
REMAINS ON INSULIN DRIP AT 2UNITS PER HOUR, LUNCH TRAY DELEIVERED
[2020-03-10 12:32] LABS: BUN 28 mg/dl (7-24); CHLORIDE 113 mmol/L (98-107); CREATININE 1.43 mg/dL (0.70-1.30); SODIUM 144 mmol/L (136-145)
[2020-03-10 12:35] LABS: POTASSIUM 3.9 mmol/L (3.5-5.1)
--- NOTE | 2020-03-10 13:30 | NUR ---
DR MATOS HERE AND TALKED WITH PT AND UPDATED ON LABS
--- NOTE | 2020-03-10 15:30 | NUR ---
INSULIN DRIP JULIANN'D
--- NOTE | 2020-03-10 17:54 | NUR ---
PT NOT EATING A "GREAT"DINNER HOME INSULIN TO START IN AM
[2020-03-10 17:56] LABS: CREATININE 1.54 mg/dL (0.70-1.30); POTASSIUM 3.6 mmol/L (3.5-5.1)
--- NOTE | 2020-03-10 19:59 | NUR ---
PT DID NOT EAT MUCH MORE OF HIS DINNER. UPON ASSESSMENT, HE DENIES NAUSEA BUT STATES "JUST NOT HUNGRY".
--- NOTE | 2020-03-10 21:18 | NUR ---
BEDSIDE GLUCOSE 77. PT EATING SNACK OF KENNETH CRACKERS AND MILK.
[2020-03-11] VITALS: BP 107/64
[2020-03-11 04:00] VITALS: BP 97/61
[2020-03-11 06:10] LABS: ALBUMIN 2.7 gm/dl (3.1-4.5); ALKALINE PHOSPHATASE 141 U/L (45-117); BUN 18 mg/dl (7-24); CHLORIDE 115 mmol/L (98-107); CREATININE 1.07 mg/dL (0.70-1.30); POTASSIUM 3.3 mmol/L (3.5-5.1); SGOT/AST 11 IU/L (3-35); SGPT/ALT 22 U/L (12-78); SODIUM 144 mmol/L (136-145); TOTAL PROTEIN 5.2 gm/dL (6.4-8.2)
--- NOTE | 2020-03-11 06:23 | NUR ---
GLUCOSE 119. PT REMAINS FREE OF SYMPTOMS OF HYPO/HYPERGLYCEMIA.
[2020-03-11 08:00] VITALS: BP 101/68
--- NOTE | 2020-03-11 09:00 | NUR ---
Discussed discharge planning with Dr. Groves who states patient could possibly be discharged today. Support Team Assoc in to see patient. No new needs or request at this time. When medically stable he will be discharged to home.
--- NOTE | 2020-03-11 09:53 | NUR ---
Dr. Groves notified of wound care recommendations.
--- NOTE | 2020-03-11 11:30 | NUR ---
BLOOD SUGAR 334. PATIENT REQUEST TO NOT COVER AND GIVE 17 UNITS NPH. LUNCH CALLED IN.
[2020-03-11 12:00] VITALS: BP 117/76
[2020-03-11] MEDS ORDERED: K-PHOS ORIGINA500 MG PO (14:30)
--- NOTE | 2020-03-11 15:02 | NUR ---
Discharge instructions reviewed with patient/family. Patient receptive and verbalizes understanding. Follow-up care arranged. Written instructions given to patient/family. DEEDEE ORTIZ
== END 2020-03-11 15:02 | disposition home or self-care (01) | DRG 420 ==
LOC: ED 20:32 → ICCU 23:03 → EDHOLD 23:03 → ICCU 23:32
PROVIDERS: Emergency Medicine; ADMIT Internal Medicine
DX: E10.10 Type 1 diabetes mellitus with ketoacidosis without coma (principal); N17.0 Acute kidney failure with tubular necrosis; E83.51 Hypocalcemia; E78.5 Hyperlipidemia, unspecified; F17.210 Nicotine dependence, cigarettes, uncomplicated; Z71.6 Tobacco abuse counseling; Z82.49 Family history of ischemic heart disease and other diseases of the circulatory system; Z80.6 Family history of leukemia; Z88.8 Allergy status to other drugs, medicaments and biological substances; Z79.82 Long term (current) use of aspirin; Z79.4 Long term (current) use of insulin; Z87.442 Personal history of urinary calculi

== ENCOUNTER 2020-09-28 17:53 | Emergency (ER) | payer OTHER ==
[~2020-09-28] VITALS: Ht 177.8 cm; Wt 64.4 kg
[~2020-09-28 17:53] MED LIST changes: +K-PHOS ORIGINA500 MG PO
[2020-09-28 18:47] LABS: BASO # 0.1 10*3/uL (0.0-0.1); BASO % 1.2 % (0.0-1.0); EOS # 0.1 10*3/uL (0.0-0.4); EOS % 1.3 % (1.0-4.0); LYMPH # 1.5 10*3/uL (1.3-4.4); LYMPH % 27.9 % (27.0-41.0); MEAN CELL VOLUME 93.3 fl (80.0-94.0); MEAN CORPUSCULAR HGB 31.6 pg (27.0-31.0); MEAN CORPUSCULAR HGB CONC 33.8 g/dl (33.0-37.0); MEAN PLATELET VOLUME 10.4 fl (9.6-12.3); MONO # 0.3 10*3/uL (0.1-1.0); MONO % 6.3 % (3.0-9.0); NEUT # 3.3 10*3/uL (2.3-7.9); NEUT % 63.1 % (47.0-73.0); PLATELET COUNT AUTOMATED 192 10*3/uL (130-400); RED BLOOD COUNT 4.18 10*6/uL (4.50-5.90); RED CELL DISTRI WIDTH 12.9 % (0-14.5); WHITE BLOOD COUNT 5.2 10*3/uL (4.8-10.8)
[2020-09-28 19:11] LABS: ALBUMIN 3.6 gm/dl (3.1-4.5); ALKALINE PHOSPHATASE 231 U/L (45-117); BUN 13 mg/dl (7-24); CHLORIDE 103 mmol/L (98-107); CREATININE 1.28 mg/dL (0.70-1.30); SGOT/AST 21 IU/L (3-35); SGPT/ALT 32 U/L (12-78); SODIUM 136 mmol/L (136-145); TOTAL PROTEIN 6.8 gm/dL (6.4-8.2)
[2020-09-28] MEDS ORDERED: CLINDAMYCIN HC300 MG PO (21:06)
== END 2020-09-28 21:15 | disposition home or self-care (01) ==
LOC: ED 17:53
PROVIDERS: Physician Assistant
DX: L03.032 Cellulitis of left toe (principal); E11.9 Type 2 diabetes mellitus without complications; Z79.4 Long term (current) use of insulin; Z79.899 Other long term (current) drug therapy; Z79.82 Long term (current) use of aspirin; Z98.890 Other specified postprocedural states; Z87.442 Personal history of urinary calculi; Z87.891 Personal history of nicotine dependence

== ENCOUNTER 2020-11-14 12:08 | Inpatient (IN) | payer OTHER ==
[2020-11-14] VITALS (16 sets, daily range): BP systolic 96–113; BP diastolic 52–61
[~2020-11-14 12:08] MED LIST changes: +CLINDAMYCIN HC300 MG PO
[2020-11-14 12:32] LABS: HEMATOCRIT 39.1 % (42.0-52.0); MEAN CELL VOLUME 95.8 fl (80.0-94.0); MEAN CORPUSCULAR HGB 31.1 pg (27.0-31.0); MEAN CORPUSCULAR HGB CONC 32.5 g/dl (33.0-37.0); MEAN PLATELET VOLUME 10.7 fl (9.6-12.3); PLATELET COUNT AUTOMATED 230 10*3/uL (130-400); RED BLOOD COUNT 4.08 10*6/uL (4.50-5.90); WHITE BLOOD COUNT 16.9 10*3/uL (4.8-10.8)
[2020-11-14 12:46] LABS: ALBUMIN 3.8 gm/dl (3.1-4.5); CREATININE 2.12 mg/dL (0.70-1.30); POTASSIUM 5.1 mmol/L (3.5-5.1); TOTAL PROTEIN 6.7 gm/dL (6.4-8.2)
[2020-11-14 12:52] LABS: BURR CELLS FEW; PLATELET SUFFICIENCY NORMAL (NORMAL); TOTAL CELLS COUNTED 100 #CELLS
[2020-11-14] MEDS ORDERED: ATORVASTATIN CA40 M1 PO (19:37)
[2020-11-14] MEDS ORDERED: HUMULIN N100 UNIT/1 SQ (19:39)
[2020-11-14] MEDS ORDERED: HUMULIN R100 UNIT/1 SC (19:42)
[2020-11-14] MEDS ORDERED: VITAMIN D350 MCG PO (19:43)
[2020-11-14] MEDS ORDERED: GABAPENTIN100 M2 PO (19:43)
[2020-11-14 20:27] LABS: CREATININE 2.07 mg/dL (0.70-1.30); POTASSIUM 3.6 mmol/L (3.5-5.1)
[2020-11-15] VITALS (17 sets, daily range): BP systolic 78–108; BP diastolic 34–60
[2020-11-15 01:22] LABS: CREATININE 1.89 mg/dL (0.70-1.30); POTASSIUM 3.9 mmol/L (3.5-5.1)
[2020-11-15 04:21] LABS: BASO % 0.2 % (0.0-1.0); HEMATOCRIT 31.8 % (42.0-52.0); LYMPH # 1.9 10*3/uL (1.3-4.4); LYMPH % 12.3 % (27.0-41.0); MEAN CELL VOLUME 94.4 fl (80.0-94.0); MEAN PLATELET VOLUME 10.2 fl (9.6-12.3); MONO % 6.4 % (3.0-9.0); NEUT # 12.8 10*3/uL (2.3-7.9); NEUT % 80.6 % (47.0-73.0); PLATELET COUNT AUTOMATED 197 10*3/uL (130-400); RED BLOOD COUNT 3.37 10*6/uL (4.50-5.90); RED CELL DISTRI WIDTH 13.3 % (0-14.5); WHITE BLOOD COUNT 15.8 10*3/uL (4.8-10.8)
[2020-11-15 04:35] LABS: CREATININE 1.75 mg/dL (0.70-1.30); POTASSIUM 4.3 mmol/L (3.5-5.1)
[2020-11-15 04:38] LABS: ALBUMIN 2.9 gm/dl (3.1-4.5); CREATININE 1.72 mg/dL (0.70-1.30); TOTAL PROTEIN 5.3 gm/dL (6.4-8.2)
[2020-11-15 04:39] LABS: ACT PARTIAL THROMBO TIME 22.2 SECONDS (20.0-32.1); FREE T4 0.99 ng/dl (0.76-1.46)
[2020-11-15 04:44] LABS: THYROID STIM HORMONE (HS) 0.487 uIU/ml (0.358-4.75)
[2020-11-15 09:18] LABS: BILIRUBIN Negative (Negative); BLOOD Negative (Negative); CLARITY Clear (Clear); COLOR Yellow (Yellow); GLUCOSE 3+ (Negative); KETONE 3+ (Negative); LEUKO ESTERASE Negative (Negative); NITRITE Negative (Negative); UROBILINOGEN 0.2 E.U./dl (0.0-1.0)
[2020-11-15 09:42] LABS: WBC 0-2 wbc/hpf (0-5)
[2020-11-15 11:54] LABS: CREATININE 1.56 mg/dL (0.70-1.30); POTASSIUM 3.9 mmol/L (3.5-5.1)
[2020-11-15 14:51] LABS: CREATININE 1.49 mg/dL (0.70-1.30); POTASSIUM 3.7 mmol/L (3.5-5.1)
[2020-11-15 23:40] LABS: BUN 24 mg/dl (7-24); CHLORIDE 116 mmol/L (98-107); CREATININE 1.26 mg/dL (0.70-1.30); POTASSIUM 3.7 mmol/L (3.5-5.1); SODIUM 144 mmol/L (136-145)
[2020-11-16 00:43] VITALS: BP 110/67
[2020-11-16 04:44] VITALS: BP 105/58
[2020-11-16 06:09] LABS: BUN 21 mg/dl (7-24); CHLORIDE 113 mmol/L (98-107); POTASSIUM 3.5 mmol/L (3.5-5.1); SODIUM 142 mmol/L (136-145)
[2020-11-16 06:44] VITALS: BP 108/62
[2020-11-16 11:02] VITALS: BP 99/54
== END 2020-11-16 11:35 | disposition home or self-care (01) | DRG 420 ==
LOC: ED 12:08 → EDHOLD 13:13 → ICCU 19:21 → EDHOLD 19:21
PROVIDERS: Internal Medicine; ADMIT Internal Medicine; ATTEND Internal Medicine
DX: E10.10 Type 1 diabetes mellitus with ketoacidosis without coma (principal); K92.0 Hematemesis; F17.210 Nicotine dependence, cigarettes, uncomplicated; E78.2 Mixed hyperlipidemia; N17.0 Acute kidney failure with tubular necrosis; R65.10 Systemic inflammatory response syndrome (SIRS) of non-infectious origin without acute organ dysfunction; D53.9 Nutritional anemia, unspecified; E87.8 Other disorders of electrolyte and fluid balance, not elsewhere classified; E10.42 Type 1 diabetes mellitus with diabetic polyneuropathy; E80.6 Other disorders of bilirubin metabolism; R74.8 Abnormal levels of other serum enzymes; E10.21 Type 1 diabetes mellitus with diabetic nephropathy; E10.319 Type 1 diabetes mellitus with unspecified diabetic retinopathy without macular edema; Z88.8 Allergy status to other drugs, medicaments and biological substances; Z87.442 Personal history of urinary calculi; Z82.49 Family history of ischemic heart disease and other diseases of the circulatory system; Z80.6 Family history of leukemia; Z80.8 Family history of malignant neoplasm of other organs or systems; Z87.11 Personal history of peptic ulcer disease; Z79.82 Long term (current) use of aspirin; Z79.899 Other long term (current) drug therapy

== ENCOUNTER 2020-12-06 18:41 | Inpatient (IN) | payer OTHER ==
[~2020-12-06] VITALS: Ht 172.7 cm; Wt 57.9 kg
[~2020-12-06 18:41] MED LIST changes: +ATORVASTATIN CA40 M1 PO; +GABAPENTIN100 M2 PO; +HUMULIN R100 UNIT/1 SC; +VITAMIN D350 MCG PO
[2020-12-06 18:46] VITALS: BP 95/51
[2020-12-06 19:02] LABS: BASO # 0.1 10*3/uL (0.0-0.1); BASO % 0.7 % (0.0-1.0); EOS % 0.1 % (1.0-4.0); HEMATOCRIT 39.8 % (42.0-52.0); LYMPH # 1.1 10*3/uL (1.3-4.4); MEAN CELL VOLUME 99.5 fl (80.0-94.0); MEAN CORPUSCULAR HGB 32.3 pg (27.0-31.0); MEAN CORPUSCULAR HGB CONC 32.4 g/dl (33.0-37.0); MEAN PLATELET VOLUME 11.1 fl (9.6-12.3); MONO # 0.5 10*3/uL (0.1-1.0); MONO % 3.2 % (3.0-9.0); NEUT # 13.5 10*3/uL (2.3-7.9); NEUT % 88.2 % (47.0-73.0); PLATELET COUNT AUTOMATED 231 10*3/uL (130-400); RED CELL DISTRI WIDTH 13.5 % (0-14.5); WHITE BLOOD COUNT 15.3 10*3/uL (4.8-10.8)
[2020-12-06 19:19] LABS: ALBUMIN 3.5 gm/dl (3.1-4.5); CREATININE 1.81 mg/dL (0.70-1.30); POTASSIUM 5.3 mmol/L (3.5-5.1); TOTAL PROTEIN 6.4 gm/dL (6.4-8.2)
[2020-12-06 19:57] VITALS: BP 106/57
[2020-12-06 21:10] VITALS: BP 129/73
[2020-12-07] VITALS: BP 140/57
[2020-12-07 00:25] LABS: CREATININE 1.72 mg/dL (0.70-1.30)
[2020-12-07 00:27] LABS: POTASSIUM 3.8 mmol/L (3.5-5.1)
[2020-12-07 00:39] LABS: BILIRUBIN Negative (Negative); BLOOD Negative (Negative); CLARITY Clear (Clear); COLOR Yellow (Yellow); GLUCOSE 3+ (Negative); KETONE 4+ (Negative); LEUKO ESTERASE Negative (Negative); NITRITE Negative (Negative); UROBILINOGEN 0.2 E.U./dl (0.0-1.0)
[2020-12-07 00:58] LABS: BACTERIA TRACE; EPITHELIAL CELLS 0-2; RBC 0-2 rbc/hpf (0-2)
[2020-12-07 04:00] VITALS: BP 104/48
[2020-12-07 05:46] LABS: CREATININE 1.73 mg/dL (0.70-1.30); POTASSIUM 3.6 mmol/L (3.5-5.1)
[2020-12-07 06:12] LABS: BASO % 0.2 % (0.0-1.0); HEMATOCRIT 32.4 % (42.0-52.0); LYMPH # 1.2 10*3/uL (1.3-4.4); LYMPH % 9.4 % (27.0-41.0); MEAN CORPUSCULAR HGB 32.4 pg (27.0-31.0); MEAN CORPUSCULAR HGB CONC 34.3 g/dl (33.0-37.0); MEAN PLATELET VOLUME 11.2 fl (9.6-12.3); MONO # 0.8 10*3/uL (0.1-1.0); MONO % 5.9 % (3.0-9.0); NEUT # 10.9 10*3/uL (2.3-7.9); PLATELET COUNT AUTOMATED 207 10*3/uL (130-400); RED BLOOD COUNT 3.43 10*6/uL (4.50-5.90); RED CELL DISTRI WIDTH 13.6 % (0-14.5); WHITE BLOOD COUNT 12.9 10*3/uL (4.8-10.8)
[2020-12-07 06:13] LABS: MEAN CELL VOLUME 94.5 fl (80.0-94.0)
[2020-12-07 08:00] VITALS: BP 98/61
[2020-12-07 12:00] VITALS: BP 109/61
[2020-12-07 14:07] LABS: CREATININE 1.46 mg/dL (0.70-1.30); POTASSIUM 3.6 mmol/L (3.5-5.1)
[2020-12-07 16:00] VITALS: BP 106/60
[2020-12-07 20:00] VITALS: BP 109/71
[2020-12-08] VITALS (7 sets, daily range): BP systolic 96–120; BP diastolic 53–67
[2020-12-08 13:43] LABS: BASO # 0.1 10*3/uL (0.0-0.1); BASO % 0.4 % (0.0-1.0); EOS % 0.2 % (1.0-4.0); HEMATOCRIT 37.6 % (42.0-52.0); LYMPH # 1.6 10*3/uL (1.3-4.4); LYMPH % 13.4 % (27.0-41.0); MEAN CORPUSCULAR HGB 32.1 pg (27.0-31.0); MEAN CORPUSCULAR HGB CONC 32.7 g/dl (33.0-37.0); MEAN PLATELET VOLUME 10.5 fl (9.6-12.3); MONO # 0.4 10*3/uL (0.1-1.0); MONO % 3.3 % (3.0-9.0); NEUT # 9.6 10*3/uL (2.3-7.9); NEUT % 82.3 % (47.0-73.0); PLATELET COUNT AUTOMATED 177 10*3/uL (130-400); RED BLOOD COUNT 3.83 10*6/uL (4.50-5.90); RED CELL DISTRI WIDTH 14.3 % (0-14.5); WHITE BLOOD COUNT 11.7 10*3/uL (4.8-10.8)
[2020-12-08 13:46] LABS: MEAN CELL VOLUME 98.2 fl (80.0-94.0)
[2020-12-08 13:53] LABS: ALBUMIN 3.1 gm/dl (3.1-4.5); CREATININE 1.55 mg/dL (0.70-1.30); POTASSIUM 3.7 mmol/L (3.5-5.1)
[2020-12-09 08:00] VITALS: BP 125/74
[2020-12-09 12:00] VITALS: BP 129/80
[2020-12-09] MEDS ORDERED: CEFUROXIME AXE500 MG PO (13:49)
[2020-12-09] MEDS ORDERED: LOTRIMIN AF90 GM TD (13:49)
== END 2020-12-09 14:43 | disposition home or self-care (01) | DRG 420 ==
LOC: ED 18:41 → EDHOLD 19:38 → ICCU 19:38
PROVIDERS: Student in an Organized Health Care Education/Training Program; ADMIT Internal Medicine; ATTEND Internal Medicine
DX: E10.10 Type 1 diabetes mellitus with ketoacidosis without coma (principal); N17.0 Acute kidney failure with tubular necrosis; D72.829 Elevated white blood cell count, unspecified; R65.10 Systemic inflammatory response syndrome (SIRS) of non-infectious origin without acute organ dysfunction; E78.5 Hyperlipidemia, unspecified; F17.210 Nicotine dependence, cigarettes, uncomplicated; D53.9 Nutritional anemia, unspecified; R74.9 Abnormal serum enzyme level, unspecified; E83.39 Other disorders of phosphorus metabolism; S31.000A Unspecified open wound of lower back and pelvis without penetration into retroperitoneum, initial encounter; E87.0 Hyperosmolality and hypernatremia; X58.XXXA Exposure to other specified factors, initial encounter; Z88.8 Allergy status to other drugs, medicaments and biological substances; Z87.442 Personal history of urinary calculi; Z82.49 Family history of ischemic heart disease and other diseases of the circulatory system; Z80.6 Family history of leukemia; Z78.9 Other specified health status; Y93.89 Activity, other specified; Y92.89 Other specified places as the place of occurrence of the external cause; Y99.8 Other external cause status

== ENCOUNTER 2021-03-05 10:52 | Emergency (ER) | payer OTHER ==
[~2021-03-05] VITALS: Wt 63.5 kg
[~2021-03-05 10:52] MED LIST changes: +CEFUROXIME AXE500 MG PO; +LOTRIMIN AF90 GM TD; +PROTONIX40 MG PO; +VITAMIN D350 MC2 PO
[2021-03-05 11:23] VITALS: BP 142/76
[2021-03-05 12:08] LABS: BASO % 0.5 % (0.0-1.0); EOS # 0.1 10*3/uL (0.0-0.4); EOS % 1.5 % (1.0-4.0); HEMATOCRIT 36.6 % (42.0-52.0); LYMPH # 1.5 10*3/uL (1.3-4.4); LYMPH % 17.6 % (27.0-41.0); MEAN CELL VOLUME 96.8 fl (80.0-94.0); MEAN CORPUSCULAR HGB 32.5 pg (27.0-31.0); MEAN CORPUSCULAR HGB CONC 33.6 g/dl (33.0-37.0); MEAN PLATELET VOLUME 10.3 fl (9.6-12.3); MONO # 0.5 10*3/uL (0.1-1.0); NEUT # 6.2 10*3/uL (2.3-7.9); NEUT % 73.8 % (47.0-73.0); PLATELET COUNT AUTOMATED 194 10*3/uL (130-400); RED BLOOD COUNT 3.78 10*6/uL (4.50-5.90); RED CELL DISTRI WIDTH 12.5 % (0-14.5); WHITE BLOOD COUNT 8.5 10*3/uL (4.8-10.8)
[2021-03-05 12:18] LABS: ACT PARTIAL THROMBO TIME 22.5 SECONDS (20.0-32.1)
[2021-03-05 12:29] LABS: ALBUMIN 3.2 gm/dl (3.1-4.5); ALKALINE PHOSPHATASE 150 U/L (45-117); BUN 8 mg/dl (7-24); CHLORIDE 109 mmol/L (98-107); CREATININE 1.08 mg/dL (0.70-1.30); POTASSIUM 3.8 mmol/L (3.5-5.1); SGOT/AST 40 IU/L (3-35); SGPT/ALT 41 U/L (12-78); SODIUM 142 mmol/L (136-145); TOTAL PROTEIN 6.1 gm/dL (6.4-8.2)
[2021-03-05 12:33] VITALS: BP 125/76
[2021-03-05 12:33] LABS: TROPONIN I < 0.015 ng/ml (<0.045)
== END 2021-03-05 13:35 | disposition left against medical advice (07) ==
LOC: ED 10:52 → EDHOLD 13:16 → ED 13:16
PROVIDERS: Emergency Medicine
DX: R07.9 Chest pain, unspecified (principal); E78.5 Hyperlipidemia, unspecified; E10.9 Type 1 diabetes mellitus without complications; Z79.4 Long term (current) use of insulin; Z79.899 Other long term (current) drug therapy; Z98.890 Other specified postprocedural states

== ENCOUNTER 2021-04-24 09:09 | Emergency (ER) | payer OTHER ==
[~2021-04-24] VITALS: Ht 177.8 cm; Wt 64.0 kg
== END 2021-04-24 09:32 | disposition home or self-care (01) ==
LOC: ED 09:09
DX: R60.0 Localized edema (principal); Z88.8 Allergy status to other drugs, medicaments and biological substances; Z79.82 Long term (current) use of aspirin; Z79.4 Long term (current) use of insulin; Z79.899 Other long term (current) drug therapy; Z98.890 Other specified postprocedural states

== ENCOUNTER → 2021-06-10 | Outpatient (CLI) | payer OTHER ==
[2021-06-10 09:42] LABS: BILIRUBIN Negative (Negative); BLOOD Negative (Negative); CLARITY Clear (Clear); COLOR Yellow (Yellow); GLUCOSE 3+ (Negative); KETONE Negative (Negative); LEUKO ESTERASE Negative (Negative); NITRITE Negative (Negative); SPECIFIC GRAVITY 1.025 (1.001-1.030)
[2021-06-10 09:51] LABS: RETICULOCYTE % 0.99 % (0.50-2.50)
[2021-06-10 10:02] LABS: BACTERIA 1+; EPITHELIAL CELLS 0-2; MUCOUS TRACE
[2021-06-10 10:42] LABS: VITAMIN D, 25-HYDROXY 37.3 ng/mL (30-100)
[2021-06-10 12:10] LABS: ALBUMIN 3.6 gm/dl (3.1-4.5); BUN 14 mg/dl (7-24); CHLORIDE 106 mmol/L (98-107); CREATININE 1.24 mg/dL (0.70-1.30); POTASSIUM 4.4 mmol/L (3.5-5.1); SODIUM 138 mmol/L (136-145); TOTAL IRON BINDING CAPACITY 297 ug/dl (250-450); URIC ACID 4.6 mg/dL (3.5-7.2)
[2021-06-10 12:19] LABS: FREE T4 0.87 ng/dl (0.76-1.46); IRON 93 ug/dL (65-175)
== END | disposition home or self-care (01) ==
LOC: LAB 09:15
PROVIDERS: ATTEND Internal Medicine
DX: E10.65 Type 1 diabetes mellitus with hyperglycemia (principal); G62.9 Polyneuropathy, unspecified; E04.9 Nontoxic goiter, unspecified; E55.9 Vitamin D deficiency, unspecified; N20.0 Calculus of kidney; D64.9 Anemia, unspecified

== ENCOUNTER 2021-07-03 22:15 | Emergency (ER) | payer OTHER ==
[2021-07-03 23:57] LABS: BILIRUBIN Negative (Negative); BLOOD Negative (Negative); CLARITY Clear (Clear); COLOR Yellow (Yellow); GLUCOSE 3+ (Negative); KETONE Negative (Negative); LEUKO ESTERASE Negative (Negative); NITRITE Negative (Negative)
[2021-07-04 00:10] LABS: RBC 0-2 rbc/hpf (0-2); WBC 0-2 wbc/hpf (0-5); YEAST TRACE
[2021-07-17] MEDS ORDERED: NOVOLIN 70100 UNIT/1 INTRADERM (10:13)
== END 2021-07-04 02:55 | disposition home or self-care (01) ==
LOC: ED 22:15
PROVIDERS: Physician Assistant
DX: M54.5 Low back pain (principal); E11.9 Type 2 diabetes mellitus without complications; F17.210 Nicotine dependence, cigarettes, uncomplicated; Z87.442 Personal history of urinary calculi; Z88.8 Allergy status to other drugs, medicaments and biological substances; Z79.899 Other long term (current) drug therapy; Z79.4 Long term (current) use of insulin; Z79.82 Long term (current) use of aspirin

== ENCOUNTER 2021-07-15 11:41 | Emergency (ER) | payer OTHER ==
[~2021-07-15] VITALS: Ht 177.8 cm; Wt 63.5 kg
[2021-07-15 14:02] LABS: BASO % 0.8 % (0.0-1.0); HEMATOCRIT 38.9 % (42.0-52.0); LYMPH % 25.5 % (27.0-41.0); MEAN CELL VOLUME 92.8 fl (80.0-94.0); MEAN CORPUSCULAR HGB 31.7 pg (27.0-31.0); MEAN CORPUSCULAR HGB CONC 34.2 g/dl (33.0-37.0); MEAN PLATELET VOLUME 10.3 fl (9.6-12.3); MONO # 0.7 10*3/uL (0.1-1.0); MONO % 18.5 % (3.0-9.0); NEUT # 2.2 10*3/uL (2.3-7.9); NEUT % 53.9 % (47.0-73.0); PLATELET COUNT AUTOMATED 151 10*3/uL (130-400); RED BLOOD COUNT 4.19 10*6/uL (4.50-5.90); RED CELL DISTRI WIDTH 12.6 % (0-14.5)
[2021-07-15 14:21] LABS: ALBUMIN 3.4 gm/dl (3.1-4.5); ALKALINE PHOSPHATASE 184 U/L (45-117); BUN 13 mg/dl (7-24); CHLORIDE 107 mmol/L (98-107); POTASSIUM 4.1 mmol/L (3.5-5.1); SGOT/AST 24 IU/L (3-35); SGPT/ALT 24 U/L (12-78); SODIUM 138 mmol/L (136-145); TOTAL PROTEIN 6.4 gm/dL (6.4-8.2)
[2021-07-15 14:28] LABS: TROPONIN I < 0.015 ng/ml (<0.045)
[2021-07-17] MEDS ORDERED: NOVOLIN 70100 UNIT/1 INTRADERM (10:13)
== END 2021-07-15 17:21 | disposition home or self-care (01) ==
LOC: ED 11:41
PROVIDERS: Emergency Medicine
DX: U07.1 COVID-19 (principal); E78.5 Hyperlipidemia, unspecified; E10.9 Type 1 diabetes mellitus without complications; F17.210 Nicotine dependence, cigarettes, uncomplicated; Z79.82 Long term (current) use of aspirin; Z88.8 Allergy status to other drugs, medicaments and biological substances; Z79.899 Other long term (current) drug therapy; Z79.4 Long term (current) use of insulin; Z87.442 Personal history of urinary calculi; Z98.890 Other specified postprocedural states

== ENCOUNTER 2022-02-02 08:29 | Emergency (ER) | payer OTHER ==
[~2022-02-02] VITALS: Ht 177.8 cm; Wt 63.5 kg
[~2022-02-02 08:29] MED LIST changes: +NOVOLIN 70100 UNIT/1 INTRADERM
[2022-02-02 10:06] LABS: BASO % 0.5 % (0.0-1.0); EOS % 0.5 % (1.0-4.0); HEMATOCRIT 36.8 % (42.0-52.0); LYMPH # 1.1 10*3/uL (1.3-4.4); LYMPH % 14.9 % (27.0-41.0); MEAN CELL VOLUME 88.9 fl (80.0-94.0); MEAN CORPUSCULAR HGB 31.6 pg (27.0-31.0); MEAN CORPUSCULAR HGB CONC 35.6 g/dl (33.0-37.0); MEAN PLATELET VOLUME 10.4 fl (9.6-12.3); MONO # 0.4 10*3/uL (0.1-1.0); MONO % 5.8 % (3.0-9.0); NEUT # 5.9 10*3/uL (2.3-7.9); PLATELET COUNT AUTOMATED 196 10*3/uL (130-400); RED BLOOD COUNT 4.14 10*6/uL (4.50-5.90); RED CELL DISTRI WIDTH 12.4 % (0-14.5); WHITE BLOOD COUNT 7.6 10*3/uL (4.8-10.8)
[2022-02-02 10:15] LABS: BILIRUBIN Negative (Negative); BLOOD 3+ (Negative); CLARITY Clear (Clear); COLOR Yellow (Yellow); GLUCOSE 3+ (Negative); KETONE Negative (Negative); LEUKO ESTERASE Negative (Negative); NITRITE Negative (Negative); SPECIFIC GRAVITY >= 1.030 (1.001-1.030)
[2022-02-02 10:25] LABS: ALKALINE PHOSPHATASE 169 U/L (45-117); BUN 19 mg/dl (7-24); CHLORIDE 104 mmol/L (98-107); CREATININE 1.39 mg/dL (0.70-1.30); LIPASE 201 U/L (73-393); POTASSIUM 4.6 mmol/L (3.5-5.1); SGOT/AST 28 IU/L (3-35); SGPT/ALT 37 U/L (12-78); SODIUM 134 mmol/L (136-145); TOTAL PROTEIN 6.5 gm/dL (6.4-8.2)
[2022-02-02 10:47] LABS: EPITHELIAL CELLS 0-2; RBC TNTC rbc/hpf (0-2); WBC 0-2 wbc/hpf (0-5)
[2022-02-02] MEDS ORDERED: FLOMAX0.4 MG PO ×2 (12:37)
[2022-02-02] MEDS ORDERED: ZOFRAN4 MG PO ×2 (12:37)
== END 2022-02-02 12:52 | disposition home or self-care (01) ==
LOC: ED 08:29
PROVIDERS: Emergency Medicine
DX: N13.2 Hydronephrosis with renal and ureteral calculous obstruction (principal); Z88.8 Allergy status to other drugs, medicaments and biological substances; Z79.899 Other long term (current) drug therapy; Z79.82 Long term (current) use of aspirin; Z98.890 Other specified postprocedural states; Z87.891 Personal history of nicotine dependence

== ENCOUNTER 2022-02-16 09:30 | Emergency (ER) | payer OTHER ==
[~2022-02-16] VITALS: Ht 177.8 cm; Wt 63.5 kg
[~2022-02-16 09:30] MED LIST changes: +ZOFRAN4 MG PO
[2022-02-16 09:56] LABS: BILIRUBIN Negative (Negative); BLOOD Negative (Negative); CLARITY Clear (Clear); COLOR Yellow (Yellow); GLUCOSE 3+ (Negative); KETONE Negative (Negative); LEUKO ESTERASE Negative (Negative); NITRITE Negative (Negative); PH 5.5 (4.5-8.0); SPECIFIC GRAVITY >= 1.030 (1.001-1.030); UROBILINOGEN 0.2 E.U./dl (0.0-1.0)
[2022-02-16 10:03] LABS: BASO # 0.1 10*3/uL (0.0-0.1); BASO % 0.9 % (0.0-1.0); EOS # 0.1 10*3/uL (0.0-0.4); EOS % 2.5 % (1.0-4.0); HEMATOCRIT 39.5 % (42.0-52.0); LYMPH % 35.6 % (27.0-41.0); MEAN CELL VOLUME 89.8 fl (80.0-94.0); MEAN CORPUSCULAR HGB 31.4 pg (27.0-31.0); MEAN CORPUSCULAR HGB CONC 34.9 g/dl (33.0-37.0); MEAN PLATELET VOLUME 8.9 fl (9.6-12.3); MONO # 0.4 10*3/uL (0.1-1.0); MONO % 7.8 % (3.0-9.0); NEUT % 52.8 % (47.0-73.0); PLATELET COUNT AUTOMATED 276 10*3/uL (130-400); RED CELL DISTRI WIDTH 13.1 % (0-14.5); WHITE BLOOD COUNT 5.7 10*3/uL (4.8-10.8)
[2022-02-16 10:07] LABS: RBC 0-2 rbc/hpf (0-2); WBC 0-2 wbc/hpf (0-5)
[2022-02-16 10:18] LABS: ALKALINE PHOSPHATASE 172 U/L (45-117); BUN 13 mg/dl (7-24); CHLORIDE 105 mmol/L (98-107); CREATININE 1.29 mg/dL (0.70-1.30); LIPASE 174 U/L (73-393); POTASSIUM 4.4 mmol/L (3.5-5.1); SGOT/AST 155 IU/L (3-35); SGPT/ALT 117 U/L (12-78); SODIUM 138 mmol/L (136-145); TOTAL PROTEIN 6.9 gm/dL (6.4-8.2)
== END 2022-02-16 14:10 | disposition home or self-care (01) ==
LOC: ED 09:30
PROVIDERS: Family Medicine
DX: N20.0 Calculus of kidney (principal); Z79.899 Other long term (current) drug therapy; Z79.82 Long term (current) use of aspirin; Z88.8 Allergy status to other drugs, medicaments and biological substances; Z98.890 Other specified postprocedural states; F17.200 Nicotine dependence, unspecified, uncomplicated

== ENCOUNTER → 2022-06-05 | Outpatient (CLI) | payer OTHER ==
[2022-06-05 10:37] LABS: BILIRUBIN Negative (Negative); BLOOD Negative (Negative); CLARITY Clear (Clear); COLOR Yellow (Yellow); GLUCOSE 3+ (Negative); KETONE Negative (Negative); LEUKO ESTERASE Negative (Negative); NITRITE Negative (Negative); PH 5.5 (4.5-8.0); SPECIFIC GRAVITY 1.025 (1.001-1.030)
[2022-06-05 10:49] LABS: BUN 19 mg/dl (7-24); CHLORIDE 112 mmol/L (98-107); CREATININE 1.34 mg/dL (0.70-1.30); POTASSIUM 3.9 mmol/L (3.5-5.1); SODIUM 143 mmol/L (136-145)
[2022-06-05 10:53] LABS: IRON 82 ug/dL (65-175)
[2022-06-05 10:56] LABS: RBC 0-2 rbc/hpf (0-2)
[2022-06-05 10:57] LABS: BACTERIA TRACE; VITAMIN D, 25-HYDROXY 44.9 ng/mL (30-100)
== END | disposition home or self-care (01) ==
LOC: LAB 10:03
PROVIDERS: ATTEND Internal Medicine
DX: E10.65 Type 1 diabetes mellitus with hyperglycemia (principal); E55.9 Vitamin D deficiency, unspecified; E04.9 Nontoxic goiter, unspecified; G62.9 Polyneuropathy, unspecified; D64.9 Anemia, unspecified

== ENCOUNTER → 2022-07-10 | Outpatient (CLI) | payer OTHER ==
[2022-07-10 09:54] LABS: BASO # 0.1 10*3/uL (0.0-0.1); BASO % 0.7 % (0.0-1.0); EOS # 0.2 10*3/uL (0.0-0.4); HEMATOCRIT 42.7 % (42.0-52.0); LYMPH # 2.5 10*3/uL (1.3-4.4); LYMPH % 29.9 % (27.0-41.0); MEAN CELL VOLUME 90.1 fl (80.0-94.0); MEAN CORPUSCULAR HGB CONC 34.4 g/dl (33.0-37.0); MEAN PLATELET VOLUME 9.9 fl (9.6-12.3); MONO # 0.6 10*3/uL (0.1-1.0); MONO % 7.1 % (3.0-9.0); NEUT # 5.1 10*3/uL (2.3-7.9); NEUT % 60.1 % (47.0-73.0); PLATELET COUNT AUTOMATED 204 10*3/uL (130-400); RED BLOOD COUNT 4.74 10*6/uL (4.50-5.90); RED CELL DISTRI WIDTH 12.3 % (0-14.5); WHITE BLOOD COUNT 8.5 10*3/uL (4.8-10.8)
== END ==
LOC: LAB 09:17
PROVIDERS: ATTEND Ophthalmology Retina Specialist
DX: M31.6 Other giant cell arteritis (principal)

== ENCOUNTER → 2022-08-20 | Outpatient (CLI) | payer OTHER | END | disposition home or self-care (01) | LOC: RAD 12:41 | PROVIDERS: ATTEND Internal Medicine | DX: L81.9 Disorder of pigmentation, unspecified (principal) ==

== ENCOUNTER 2022-11-13 11:15 | Emergency (ER) | payer OTHER ==
[~2022-11-13] VITALS: Ht 177.8 cm; Wt 65.8 kg
[2022-11-13 11:50] LABS: BASO # 0.1 10*3/uL (0.0-0.1); BASO % 0.5 % (0.0-1.0); EOS # 0.1 10*3/uL (0.0-0.4); HEMATOCRIT 42.9 % (42.0-52.0); LYMPH # 1.6 10*3/uL (1.3-4.4); LYMPH % 13.9 % (27.0-41.0); MEAN CELL VOLUME 90.1 fl (80.0-94.0); MEAN CORPUSCULAR HGB 31.5 pg (27.0-31.0); MEAN PLATELET VOLUME 9.6 fl (9.6-12.3); MONO # 0.8 10*3/uL (0.1-1.0); MONO % 7.3 % (3.0-9.0); NEUT # 8.7 10*3/uL (2.3-7.9); NEUT % 77.1 % (47.0-73.0); PLATELET COUNT AUTOMATED 220 10*3/uL (130-400); RED BLOOD COUNT 4.76 10*6/uL (4.50-5.90); RED CELL DISTRI WIDTH 13.2 % (0-14.5); WHITE BLOOD COUNT 11.3 10*3/uL (4.8-10.8)
[2022-11-13 12:07] LABS: ALKALINE PHOSPHATASE 124 U/L (46-116); BUN 17 mg/dl (9-23); CHLORIDE 108 mmol/L (98-107); POTASSIUM 4.5 mmol/L (3.4-5.1); SGPT/ALT 9 U/L (10-49); TOTAL PROTEIN 6.5 gm/dL (6.0-8.0)
[2022-11-13] MEDS ORDERED: MECLIZINE HCL25 M2 PO (13:34)
== END 2022-11-13 14:13 | disposition home or self-care (01) ==
LOC: ED 11:15
PROVIDERS: Nurse Practitioner Family
DX: R42 Dizziness and giddiness (principal); E11.9 Type 2 diabetes mellitus without complications; Z79.4 Long term (current) use of insulin; Z88.8 Allergy status to other drugs, medicaments and biological substances; Z98.890 Other specified postprocedural states; Z87.442 Personal history of urinary calculi; F17.210 Nicotine dependence, cigarettes, uncomplicated; Z20.822 Contact with and (suspected) exposure to COVID-19

== ENCOUNTER → 2023-02-17 | Outpatient (CLI) | payer OTHER ==
[~2023-02-17] MED LIST changes: +ASPIRIN ADULT L81 M2 PO; +DEGLUDEC SQ; +FLUDROCORTISON0.1 MG PO; +MECLIZINE HCL25 M2 PO; +MIDODRINE HCL5 M1 PO; +ONDANSETRON HYDR4 M1 PO; +ONDANSETRON4 MG SL; +PANTOPRAZOLE SO40 MG PO; +REGLAN10 M1 PO; +TRESIBA FL200 UNIT/1 SQ
== END | disposition home or self-care (01) ==
LOC: LAB 09:19
PROVIDERS: ATTEND Internal Medicine
DX: E10.9 Type 1 diabetes mellitus without complications (principal); E55.9 Vitamin D deficiency, unspecified

== ENCOUNTER 2024-01-28 13:49 | Inpatient (IN) | payer OTHER ==
[~2024-01-28] VITALS: Ht 175.3 cm; Wt 64.9 kg
[~2024-01-28 13:49] MED LIST changes: +ADMELOG100 UNIT/1 SQ; +AVPAK AZITHROM250 M1 PO; +GAVILAX17 GM PO; +HUMULIN 70100 UNIT/2 SQ; +KLOR-CON M2020 ME1 PO; +LEVOFLOXACIN750 M2 PO; +LORATADINE-D 11 EACH PO; +METOPROLOL SUCC25 M2 PO; +METRONIDAZOLE500 M1 PO; +MIRALAX POWDER17 G1 PO; +ONDANSETRON HYDR4 MG PO; +PREGABALIN75 MG PO; +SENEXON-S 50-81 EACH PO; +XARELTO20 M1 PO
[2024-01-28 13:57] VITALS: BP 105/66
[2024-01-28] MEDS ORDERED: SODIUM CHLORIDE 0.9% 1,000 ML IV ONE ×2 (14:00→14:40)
[2024-01-28 14:12] LABS: BASO # 0.1 10*3/uL (0.0-0.1); BASO % 0.4 % (0.0-1.0); EOS % 0.1 % (1.0-4.0); HEMATOCRIT 41.9 % (42.0-52.0); LYMPH # 2.6 10*3/uL (1.3-4.4); MEAN CELL VOLUME 101.2 fl (80.0-94.0); MEAN CORPUSCULAR HGB 31.2 pg (27.0-31.0); MEAN CORPUSCULAR HGB CONC 30.8 g/dl (33.0-37.0); MEAN PLATELET VOLUME 10.7 fl (9.6-12.3); MONO # 0.5 10*3/uL (0.1-1.0); MONO % 2.8 % (3.0-9.0); NEUT # 13.8 10*3/uL (2.3-7.9); NEUT % 80.1 % (47.0-73.0); PLATELET COUNT AUTOMATED 291 10*3/uL (130-400); RED BLOOD COUNT 4.14 10*6/uL (4.50-5.90); RED CELL DISTRI WIDTH 13.2 % (0-14.5); WHITE BLOOD COUNT 17.3 10*3/uL (4.8-10.8)
[2024-01-28 14:20] VITALS: BP 125/71
[2024-01-28 14:34] LABS: POTASSIUM 5.1 mmol/L (3.4-5.1)
[2024-01-28] MEDS ORDERED: Pantoprazole Sodium 40 MG VIAL IV ONE (14:40)
[2024-01-28] MEDS ORDERED: INSULIN REGULAR IN 0.9 % NACL 100 ML IV SCH ×2 (14:40→17:10)
[2024-01-28 15:15] VITALS: BP 134/69
[2024-01-28] MEDS ORDERED: Docusate Sodium/Senna 1 TAB TAB PO PRN (16:50)
[2024-01-28] MEDS ORDERED: Metoclopramide Hydrochloride 10 MG/2 ML AMP IV SCH (16:55)
[2024-01-28] MEDS ORDERED: Ondansetron Hydrochloride 4 MG/2 ML VIAL IV PRN (16:55)
[2024-01-28] MEDS ORDERED: SODIUM BICARBONATE IV SCH (17:30)
[2024-01-28] MEDS ORDERED: SODIUM CHLORIDE 0.9% IV SCH (17:30)
[2024-01-28] MEDS ORDERED: Pantoprazole Sodium 40 MG VIAL IV SCH (18:00)
[2024-01-28] MEDS ORDERED: Ceftriaxone Sodium 1 GM in SYRINGE INFUSION 10 ML IV SCH (18:00)
[2024-01-28 20:00] VITALS: BP 144/76
[2024-01-28 20:14] LABS: BILIRUBIN Negative (Negative); BLOOD Negative (Negative); CLARITY Clear (Clear); COLOR Yellow (Yellow); GLUCOSE 3+ (Negative); KETONE 3+ (Negative); LEUKO ESTERASE Negative (Negative); NITRITE Negative (Negative); PH 5.5 (4.5-8.0); SPECIFIC GRAVITY >= 1.030 (1.001-1.030); UROBILINOGEN 0.2 E.U./dl (0.0-1.0)
[2024-01-28 20:21] LABS: RBC 0-2 rbc/hpf (0-2); WBC 0-2 wbc/hpf (0-5)
[2024-01-28 20:22] LABS: EPITHELIAL CELLS 0-2; HYALINE CAST 0-2
[2024-01-28 20:25] LABS: TOTAL PROTEIN 6.4 gm/dL (6.0-8.0)
[2024-01-28 20:26] LABS: POTASSIUM 3.8 mmol/L (3.4-5.1)
[2024-01-28] MEDS ORDERED: PREGABALIN 75 MG CAP PO SCH (22:00)
[2024-01-29] VITALS: BP 137/64
[2024-01-29 04:00] VITALS: BP 115/60
[2024-01-29 05:25] LABS: POTASSIUM 4.3 mmol/L (3.4-5.1)
[2024-01-29] MEDS ORDERED: INSULIN NOVOLOG SC ONE (05:50)
[2024-01-29] MEDS ORDERED: MIX SC ONE (05:50)
[2024-01-29 06:06] LABS: BASO % 0.3 % (0.0-1.0); HEMATOCRIT 33.8 % (42.0-52.0); LYMPH # 1.8 10*3/uL (1.3-4.4); LYMPH % 14.7 % (27.0-41.0); MEAN CORPUSCULAR HGB 31.3 pg (27.0-31.0); MEAN PLATELET VOLUME 10.5 fl (9.6-12.3); MONO % 7.8 % (3.0-9.0); NEUT # 9.3 10*3/uL (2.3-7.9); NEUT % 76.8 % (47.0-73.0); PLATELET COUNT AUTOMATED 255 10*3/uL (130-400); RED BLOOD COUNT 3.45 10*6/uL (4.50-5.90); RED CELL DISTRI WIDTH 13.3 % (0-14.5); WHITE BLOOD COUNT 12.1 10*3/uL (4.8-10.8)
[2024-01-29 08:00] VITALS: BP 141/71
[2024-01-29] MEDS ORDERED: Midodrine Hydrochloride 5 MG TAB PO SCH (08:00)
[2024-01-29] MEDS ORDERED: INSULIN NPH HUM/REG INSULIN HM 1 UNIT/0.01 ML SC ONE (08:30)
[2024-01-29] MEDS ORDERED: Polyethylene Glycol 3350 17 GM PACKET PO SCH (10:00)
[2024-01-29] MEDS ORDERED: Pantoprazole Sodium 40 MG TAB PO SCH (10:00)
[2024-01-29] MEDS ORDERED: METOPROLOL SUCCINATE XR 25 MG TAB PO SCH (10:00)
[2024-01-29 11:50] LABS: BASO % 0.3 % (0.0-1.0); EOS % 0.1 % (1.0-4.0); HEMATOCRIT 35.2 % (42.0-52.0); LYMPH # 1.4 10*3/uL (1.3-4.4); LYMPH % 10.2 % (27.0-41.0); MEAN CELL VOLUME 98.6 fl (80.0-94.0); MEAN CORPUSCULAR HGB 31.1 pg (27.0-31.0); MEAN CORPUSCULAR HGB CONC 31.5 g/dl (33.0-37.0); MEAN PLATELET VOLUME 9.5 fl (9.6-12.3); MONO # 0.8 10*3/uL (0.1-1.0); MONO % 5.4 % (3.0-9.0); NEUT # 11.7 10*3/uL (2.3-7.9); NEUT % 83.6 % (47.0-73.0); PLATELET COUNT AUTOMATED 239 10*3/uL (130-400); RED BLOOD COUNT 3.57 10*6/uL (4.50-5.90); RED CELL DISTRI WIDTH 13.2 % (0-14.5)
[2024-01-29 12:00] VITALS: BP 142/67
[2024-01-29 12:10] LABS: POTASSIUM 3.7 mmol/L (3.4-5.1)
[2024-01-29] MEDS ORDERED: DEXTROSE 5% SALINE 0.45% 1,000 ML IV SCH (12:35)
[2024-01-29] MEDS ORDERED: DEXTROSE 10 % IN WATER 250 ML IV PRN (12:35)
[2024-01-29 16:00] VITALS: BP 136/70
[2024-01-29] MEDS ORDERED: Metoclopramide Hydrochloride 5 MG TAB PO SCH (16:00)
[2024-01-29] MEDS ORDERED: INSULIN REGULAR, HUMAN 1 UNIT/0.01 ML SC SCH (16:30)
[2024-01-29] MEDS ORDERED: INSULIN NPH HUM/REG INSULIN HM 1 UNIT/0.01 ML SC SCH (16:30)
[2024-01-29 20:00] VITALS: BP 133/71
[2024-01-30] VITALS: BP 119/68
[2024-01-30 05:27] LABS: CHLORIDE 112 mmol/L (98-107); POTASSIUM 3.6 mmol/L (3.4-5.1)
[2024-01-30 05:41] LABS: BUN 31 mg/dl (9-23)
[2024-01-30] MEDS ORDERED: Pantoprazole Sodium 40 MG TAB PO SCH (06:00)
[2024-01-30 06:21] LABS: BASO # 0.1 10*3/uL (0.0-0.1); BASO % 0.7 % (0.0-1.0); EOS # 0.1 10*3/uL (0.0-0.4); EOS % 0.7 % (1.0-4.0); HEMATOCRIT 34.8 % (42.0-52.0); LYMPH # 2.1 10*3/uL (1.3-4.4); LYMPH % 24.4 % (27.0-41.0); MEAN CELL VOLUME 99.1 fl (80.0-94.0); MEAN CORPUSCULAR HGB 31.6 pg (27.0-31.0); MEAN CORPUSCULAR HGB CONC 31.9 g/dl (33.0-37.0); MEAN PLATELET VOLUME 10.2 fl (9.6-12.3); MONO # 0.5 10*3/uL (0.1-1.0); MONO % 5.6 % (3.0-9.0); NEUT # 5.9 10*3/uL (2.3-7.9); NEUT % 68.3 % (47.0-73.0); PLATELET COUNT AUTOMATED 229 10*3/uL (130-400); RED BLOOD COUNT 3.51 10*6/uL (4.50-5.90); RED CELL DISTRI WIDTH 13.2 % (0-14.5); WHITE BLOOD COUNT 8.6 10*3/uL (4.8-10.8)
[2024-01-30 08:00] VITALS: BP 108/71
[2024-01-30] MEDS ORDERED: HUMULIN 70100 UNIT/1 SC (08:21)
== END 2024-01-30 11:43 | disposition home or self-care (01) | DRG 420 ==
LOC: ED 13:49 → EDHOLD 14:49 → ICCU 14:49
PROVIDERS: Student in an Organized Health Care Education/Training Program; ADMIT Internal Medicine; ATTEND Internal Medicine
DX: E10.10 Type 1 diabetes mellitus with ketoacidosis without coma (principal); N17.0 Acute kidney failure with tubular necrosis; K92.2 Gastrointestinal hemorrhage, unspecified; E10.40 Type 1 diabetes mellitus with diabetic neuropathy, unspecified; G89.29 Other chronic pain; I12.9 Hypertensive chronic kidney disease with stage 1 through stage 4 chronic kidney disease, or unspecified chronic kidney disease; E10.22 Type 1 diabetes mellitus with diabetic chronic kidney disease; N18.9 Chronic kidney disease, unspecified; F17.210 Nicotine dependence, cigarettes, uncomplicated; Z91.09 Other allergy status, other than to drugs and biological substances; Z79.899 Other long term (current) drug therapy; Z79.01 Long term (current) use of anticoagulants; Z79.2 Long term (current) use of antibiotics; Z82.49 Family history of ischemic heart disease and other diseases of the circulatory system; Z80.6 Family history of leukemia; Z79.4 Long term (current) use of insulin; Z79.84 Long term (current) use of oral hypoglycemic drugs; Z68.21 Body mass index [BMI] 21.0-21.9, adult

== ENCOUNTER 2024-07-10 19:23 | Emergency (ER) | payer OTHER ==
[~2024-07-10] VITALS: Wt 68.0 kg
[~2024-07-10 19:23] MED LIST changes: +AMOX-CLAV 875-1 EACH PO; +HUMALOG MI100 UNIT/1 SQ; +HUMULIN 70100 UNIT/1 SC
[2024-07-10] MEDS ORDERED: INSULIN REGULAR, HUMAN 1 UNIT/0.01 ML IV ONE ×2 (19:30)
[2024-07-10] MEDS ORDERED: SODIUM CHLORIDE 0.9% 1,000 ML IV ONE ×2 (19:30)
[2024-07-10 19:38] LABS: BASO # 0.1 10*3/uL (0.0-0.1); BASO % 0.7 % (0.0-1.0); HEMATOCRIT 30.1 % (42.0-52.0); LYMPH # 1.2 10*3/uL (1.3-4.4); LYMPH % 17.1 % (27.0-41.0); MEAN CELL VOLUME 95.9 fl (80.0-94.0); MEAN CORPUSCULAR HGB 30.6 pg (27.0-31.0); MEAN CORPUSCULAR HGB CONC 31.9 g/dl (33.0-37.0); MEAN PLATELET VOLUME 10.8 fl (9.6-12.3); MONO # 0.7 10*3/uL (0.1-1.0); MONO % 10.2 % (3.0-9.0); NEUT # 4.8 10*3/uL (2.3-7.9); NEUT % 71.7 % (47.0-73.0); PLATELET COUNT AUTOMATED 206 10*3/uL (130-400); RED BLOOD COUNT 3.14 10*6/uL (4.50-5.90); RED CELL DISTRI WIDTH 17.2 % (0-14.5); WHITE BLOOD COUNT 6.7 10*3/uL (4.8-10.8)
[2024-07-10 20:10] LABS: POTASSIUM 4.8 mmol/L (3.4-5.1)
[2024-07-10 23:51] LABS: BILIRUBIN Negative (Negative); BLOOD Negative (Negative); CLARITY Clear (Clear); COLOR Yellow (Yellow); GLUCOSE 3+ (Negative); KETONE 1+ (Negative); LEUKO ESTERASE Negative (Negative); NITRITE Negative (Negative); PH 5.5 (4.5-8.0); SPECIFIC GRAVITY >= 1.030 (1.001-1.030)
[2024-07-11 00:03] LABS: RBC 0-2 rbc/hpf (0-2); WBC 0-2 wbc/hpf (0-5)
[2024-07-11 00:56] LABS: POTASSIUM 4.5 mmol/L (3.4-5.1)
[2024-07-11] MEDS ORDERED: INSULIN REGULAR, HUMAN 1 UNIT/0.01 ML SC ONE (01:25)
== END 2024-07-11 01:49 | disposition home or self-care (01) ==
LOC: ED 19:23
PROVIDERS: Internal Medicine
DX: E10.65 Type 1 diabetes mellitus with hyperglycemia (principal); R53.1 Weakness; E10.22 Type 1 diabetes mellitus with diabetic chronic kidney disease; D63.1 Anemia in chronic kidney disease; Z79.4 Long term (current) use of insulin; E78.00 Pure hypercholesterolemia, unspecified; F17.210 Nicotine dependence, cigarettes, uncomplicated; Z96.41 Presence of insulin pump (external) (internal); Z88.8 Allergy status to other drugs, medicaments and biological substances; Z98.890 Other specified postprocedural states

== ENCOUNTER 2024-10-15 10:38 | Emergency (ER) | payer OTHER ==
[~2024-10-15] VITALS: Ht 177.8 cm; Wt 68.0 kg
[2024-10-15] MEDS ORDERED: Meclizine Hydrochloride 25 MG TAB PO ONE (11:15)
[2024-10-15] MEDS ORDERED: SODIUM CHLORIDE 0.9% 1,000 ML IV ONE ×2 (11:20→12:35)
[2024-10-15 11:48] LABS: BASO # 0.1 10*3/uL (0.0-0.1); BASO % 0.8 % (0.0-1.0); EOS # 0.1 10*3/uL (0.0-0.4); EOS % 1.5 % (1.0-4.0); HEMATOCRIT 37.5 % (42.0-52.0); MEAN CELL VOLUME 94.7 fl (80.0-94.0); MEAN CORPUSCULAR HGB 29.5 pg (27.0-31.0); MEAN CORPUSCULAR HGB CONC 31.2 g/dl (33.0-37.0); MEAN PLATELET VOLUME 9.5 fl (9.6-12.3); MONO # 0.5 10*3/uL (0.1-1.0); MONO % 7.5 % (3.0-9.0); NEUT # 4.4 10*3/uL (2.3-7.9); NEUT % 66.9 % (47.0-73.0); PLATELET COUNT AUTOMATED 263 10*3/uL (130-400); RED BLOOD COUNT 3.96 10*6/uL (4.50-5.90); RED CELL DISTRI WIDTH 14.6 % (0-14.5); WHITE BLOOD COUNT 6.6 10*3/uL (4.8-10.8)
[2024-10-15 12:08] LABS: POTASSIUM 4.3 mmol/L (3.4-5.1)
== END 2024-10-15 13:12 | disposition home or self-care (01) ==
LOC: ED 10:38
PROVIDERS: Emergency Medicine
DX: R42 Dizziness and giddiness (principal); E86.0 Dehydration; E11.9 Type 2 diabetes mellitus without complications; I25.2 Old myocardial infarction; E78.00 Pure hypercholesterolemia, unspecified; F17.210 Nicotine dependence, cigarettes, uncomplicated; Z79.4 Long term (current) use of insulin; Z88.8 Allergy status to other drugs, medicaments and biological substances; Z98.890 Other specified postprocedural states

== ENCOUNTER 2024-10-29 10:03 | Observation (INO) | payer OTHER ==
[~2024-10-29] VITALS: Ht 175.2 cm; Wt 65.8 kg
[2024-10-29 10:10] VITALS: BP 107/71
[2024-10-29 10:31] LABS: BASO # 0.1 10*3/uL (0.0-0.1); BASO % 0.8 % (0.0-1.0); EOS # 0.1 10*3/uL (0.0-0.4); EOS % 1.5 % (1.0-4.0); HEMATOCRIT 36.6 % (42.0-52.0); MEAN CELL VOLUME 95.1 fl (80.0-94.0); MEAN CORPUSCULAR HGB 30.4 pg (27.0-31.0); MEAN PLATELET VOLUME 9.3 fl (9.6-12.3); MONO # 0.6 10*3/uL (0.1-1.0); MONO % 8.2 % (3.0-9.0); NEUT # 4.4 10*3/uL (2.3-7.9); NEUT % 58.9 % (47.0-73.0); PLATELET COUNT AUTOMATED 239 10*3/uL (130-400); RED BLOOD COUNT 3.85 10*6/uL (4.50-5.90); RED CELL DISTRI WIDTH 15.3 % (0-14.5); WHITE BLOOD COUNT 7.4 10*3/uL (4.8-10.8)
[2024-10-29 10:39] LABS: ACT PARTIAL THROMBO TIME 27.6 SECONDS (20.0-32.1)
[2024-10-29 10:53] LABS: BUN 30 mg/dl (9-23); CHLORIDE 104 mmol/L (98-107); POTASSIUM 4.5 mmol/L (3.4-5.1)
[2024-10-29] MEDS ORDERED: SODIUM CHLORIDE 0.9% 500 ML IV ONE (12:45)
[2024-10-29] MEDS ORDERED: Doxycycline Hyclate 100 MG in SODIUM CHLORIDE 0.9% 250 ML IV ONE (12:45)
[2024-10-29] MEDS ORDERED: Meclizine Hydrochloride 25 MG TAB PO ONE (12:45)
[2024-10-29] MEDS ORDERED: GOOD SENSE ACID20 MG PO (13:22)
[2024-10-29] MEDS ORDERED: METOCLOPRAMIDE5 MG PO (13:23)
[2024-10-29] MEDS ORDERED: DOXYCYCLINE HY100 M3 PO (13:23)
[2024-10-29] MEDS ORDERED: ELIQUIS5 M1 PO (13:23)
[2024-10-29] MEDS ORDERED: Midodrine Hydrochloride 5 MG TAB PO SCH (14:00)
[2024-10-29 16:18] VITALS: BP 146/68
[2024-10-29] MEDS ORDERED: PREGABALIN 75 MG CAP PO SCH (18:00)
[2024-10-29] MEDS ORDERED: APIXABAN 5 MG TAB PO SCH (18:00)
[2024-10-29 19:48] VITALS: BP 146/75
[2024-10-29 19:57] VITALS: BP 146/75
[2024-10-29] MEDS ORDERED: Cefuroxime Axetil 250 MG TAB PO SCH (22:00)
[2024-10-29] MEDS ORDERED: Doxycycline Hyclate 100 MG CAP PO SCH (22:00)
[2024-10-29 23:40] VITALS: BP 118/59
[2024-10-30 05:53] VITALS: BP 123/61
[2024-10-30 07:49] VITALS: BP 93/53
[2024-10-30 08:00] VITALS: BP 98/58
[2024-10-30] MEDS ORDERED: FAMOTIDINE 20 MG TAB PO SCH (10:00)
[2024-10-30] MEDS ORDERED: METOPROLOL SUCCINATE XR 25 MG TAB PO SCH (10:00)
[2024-10-30] MEDS ORDERED: Pantoprazole Sodium 40 MG TAB PO SCH (10:00)
[2024-10-30] MEDS ORDERED: ATORVASTATIN CALCIUM 40 MG TABLET PO SCH (10:00)
[2024-10-30 13:40] VITALS: BP 106/58
[2024-10-30] MEDS ORDERED: ASPIRIN ADULT L81 M2 PO (15:10)
[2024-10-30] MEDS ORDERED: Ranolazine 500 MG TAB ER PO SCH (22:00)
[2024-10-31] MEDS ORDERED: ASPIRIN ENTERIC COATED 81 MG TAB PO SCH (10:00)
== END 2024-10-30 16:18 | disposition home or self-care (01) ==
LOC: ED 10:03 → EDHOLD 13:13
PROVIDERS: Internal Medicine; ADMIT Internal Medicine; ATTEND Internal Medicine
DX: T14.8XXA Other injury of unspecified body region, initial encounter (principal); L08.9 Local infection of the skin and subcutaneous tissue, unspecified; R07.89 Other chest pain; E78.5 Hyperlipidemia, unspecified; E55.9 Vitamin D deficiency, unspecified; E10.65 Type 1 diabetes mellitus with hyperglycemia; H11.32 Conjunctival hemorrhage, left eye; Z79.899 Other long term (current) drug therapy; Y92.89 Other specified places as the place of occurrence of the external cause

== ENCOUNTER 2024-11-26 11:21 | Emergency (ER) | payer OTHER ==
[~2024-11-26] VITALS: Ht 175.2 cm; Wt 69.4 kg
[~2024-11-26 11:21] MED LIST changes: +ATIVAN0.5 MG PO; +DOXYCYCLINE HY100 M3 PO; +ELIQUIS5 M1 PO; +GOOD SENSE ACID20 MG PO; +METOCLOPRAMIDE5 MG PO
[2024-11-26] MEDS ORDERED: SODIUM CHLORIDE 0.9% 1,000 ML IV ONE (11:55)
[2024-11-26] MEDS ORDERED: diphenhydrAMINE hydrochloride 50 MG/ML VIAL IV ONE (11:55)
[2024-11-26] MEDS ORDERED: Metoclopramide Hydrochloride 10 MG/2 ML VIAL IV ONE (11:55)
[2024-11-26 12:18] LABS: VENOUS BLOOD GAS O2 SAT 62.3 % (60.0-85.0)
[2024-11-26 12:19] LABS: BASO # 0.1 10*3/uL (0.0-0.1); BASO % 0.6 % (0.0-1.0); EOS % 0.5 % (1.0-4.0); HEMATOCRIT 38.5 % (42.0-52.0); MEAN CELL VOLUME 94.8 fl (80.0-94.0); MEAN CORPUSCULAR HGB 30.3 pg (27.0-31.0); MEAN CORPUSCULAR HGB CONC 31.9 g/dl (33.0-37.0); MONO # 0.5 10*3/uL (0.1-1.0); MONO % 5.4 % (3.0-9.0); PLATELET COUNT AUTOMATED 195 10*3/uL (130-400); RED BLOOD COUNT 4.06 10*6/uL (4.50-5.90); RED CELL DISTRI WIDTH 16.3 % (0-14.5); WHITE BLOOD COUNT 8.5 10*3/uL (4.8-10.8)
[2024-11-26 12:50] LABS: POTASSIUM 4.2 mmol/L (3.4-5.1); TOTAL PROTEIN 6.7 gm/dL (6.0-8.0)
[2024-11-26 13:01] LABS: BILIRUBIN Negative (Negative); BLOOD Negative (Negative); CLARITY Clear (Clear); COLOR Yellow (Yellow); GLUCOSE 3+ (Negative); KETONE Trace (Negative); LEUKO ESTERASE Negative (Negative); NITRITE Negative (Negative); PH 5.5 (4.5-8.0); SPECIFIC GRAVITY 1.025 (1.001-1.030)
[2024-11-26 13:17] LABS: CALCIUM OXALATE CRYSTALS 3+; YEAST 1+
[2024-11-26] MEDS ORDERED: Ondansetron4 MG PO (14:53)
== END 2024-11-26 15:26 | disposition home or self-care (01) ==
LOC: ED 11:21
PROVIDERS: Nurse Practitioner Family
DX: K52.9 Noninfective gastroenteritis and colitis, unspecified (principal); R74.01 Elevation of levels of liver transaminase levels; I48.91 Unspecified atrial fibrillation; I25.10 Atherosclerotic heart disease of native coronary artery without angina pectoris; E87.6 Hypokalemia; E10.65 Type 1 diabetes mellitus with hyperglycemia; Z88.8 Allergy status to other drugs, medicaments and biological substances; D63.1 Anemia in chronic kidney disease; E78.5 Hyperlipidemia, unspecified; E87.0 Hyperosmolality and hypernatremia; E78.00 Pure hypercholesterolemia, unspecified; I25.2 Old myocardial infarction; E10.22 Type 1 diabetes mellitus with diabetic chronic kidney disease; N18.9 Chronic kidney disease, unspecified; N17.9 Acute kidney failure, unspecified; F17.210 Nicotine dependence, cigarettes, uncomplicated; Z87.442 Personal history of urinary calculi; Z95.1 Presence of aortocoronary bypass graft; Z79.4 Long term (current) use of insulin; Z98.890 Other specified postprocedural states

== ENCOUNTER 2025-04-03 19:43 | Emergency (ER) | payer OTHER ==
[~2025-04-03] VITALS: Ht 177.8 cm; Wt 84.4 kg
[~2025-04-03 19:43] MED LIST changes: +CARAFATE1 GM/10 ML PO; +LYRICA100 M1 PO; +MIDODRINE HCL10 MG PO; +OMEPRAZOLE40 MG PO; +Ondansetron4 MG PO
[2025-04-03] MEDS ORDERED: SODIUM CHLORIDE 0.9% 1,000 ML IV ONE (20:10)
[2025-04-03] MEDS ORDERED: Ondansetron Hydrochloride 4 MG/2 ML VIAL IV ONE (20:10)
[2025-04-03 20:26] LABS: BASO # 0.1 10*3/uL (0.0-0.1); BASO % 0.8 % (0.0-1.0); EOS % 0.5 % (1.0-4.0); HEMATOCRIT 34.8 % (42.0-52.0); MEAN CELL VOLUME 95.3 fl (80.0-94.0); MEAN CORPUSCULAR HGB 29.6 pg (27.0-31.0); MEAN PLATELET VOLUME 10.8 fl (9.6-12.3); MONO # 0.6 10*3/uL (0.1-1.0); MONO % 8.9 % (3.0-9.0); NEUT # 4.2 10*3/uL (2.3-7.9); PLATELET COUNT AUTOMATED 236 10*3/uL (130-400); RED BLOOD COUNT 3.65 10*6/uL (4.50-5.90); RED CELL DISTRI WIDTH 14.2 % (0-14.5); WHITE BLOOD COUNT 6.4 10*3/uL (4.8-10.8)
[2025-04-03 20:52] LABS: ALKALINE PHOSPHATASE 135 U/L (46-116); BUN 15 mg/dl (9-23); CHLORIDE 105 mmol/L (98-107); LIPASE 19 U/L (12-53); POTASSIUM 4.1 mmol/L (3.4-5.1); SGPT/ALT 23 U/L (5-49); TOTAL PROTEIN 5.8 gm/dL (6.0-8.0)
[2025-04-03] MEDS ORDERED: Pantoprazole Sodium 40 MG VIAL IV ONE (21:05)
[2025-04-03 22:40] LABS: BILIRUBIN Negative (Negative); BLOOD Negative (Negative); CLARITY Clear (Clear); COLOR Yellow (Yellow); GLUCOSE Trace (Negative); KETONE Trace (Negative); LEUKO ESTERASE Negative (Negative); NITRITE Negative (Negative); SPECIFIC GRAVITY 1.015 (1.001-1.030); UROBILINOGEN 0.2 E.U./dl (0.0-1.0)
[2025-04-03 23:02] LABS: PH >= 9.0 (4.5-8.0)
[2025-04-03 23:04] LABS: RBC 16-20 rbc/hpf (0-2); WBC 0-2 wbc/hpf (0-5)
[2025-04-03] MEDS ORDERED: Ondansetron4 MG PO (23:51)
[2025-04-03] MEDS ORDERED: OMEPRAZOLE40 MG PO (23:51)
== END 2025-04-04 00:03 | disposition home or self-care (01) ==
LOC: ED 19:43
PROVIDERS: Internal Medicine
DX: N17.9 Acute kidney failure, unspecified (principal); K59.00 Constipation, unspecified; D53.9 Nutritional anemia, unspecified; E44.1 Mild protein-calorie malnutrition; E11.9 Type 2 diabetes mellitus without complications; E78.00 Pure hypercholesterolemia, unspecified; Z79.82 Long term (current) use of aspirin; Z79.899 Other long term (current) drug therapy; Z98.890 Other specified postprocedural states

== ENCOUNTER 2025-05-09 15:53 | Emergency (ER) | payer OTHER ==
[~2025-05-09] VITALS: Ht 177.8 cm; Wt 82.3 kg
[~2025-05-09 15:53] MED LIST changes: +AMIODARONE HYD200 MG PO; +DIVALPROEX SOD500 MG PO; +ELEPSIA XR1000 MG PO; +SENNA8.6 MG PO
[2025-05-09] MEDS ORDERED: Midodrine Hydrochloride 5 MG TAB PO ONE (16:00)
[2025-05-09] MEDS ORDERED: SODIUM CHLORIDE 0.9% 1,000 ML IV ONE ×2 (16:00→16:40)
[2025-05-09] MEDS ORDERED: Atropine Sulfate/Diphenoxyla 1 TAB TAB PO ONE (16:05)
[2025-05-09 16:13] LABS: BASO # 0.1 10*3/uL (0.0-0.1); BASO % 1.1 % (0.0-1.0); EOS # 0.2 10*3/uL (0.0-0.4); EOS % 2.8 % (1.0-4.0); MEAN CELL VOLUME 95.0 fl (80.0-94.0); MEAN CORPUSCULAR HGB 29.0 pg (27.0-31.0); MEAN PLATELET VOLUME 10.2 fl (9.6-12.3); MONO # 0.5 10*3/uL (0.1-1.0); MONO % 8.2 % (3.0-9.0); NEUT # 3.0 10*3/uL (2.3-7.9); NEUT % 49.3 % (47.0-73.0); NUCLEATED RED BLOOD CELL 0.0 % (0.0-0.0); NUCLEATED RED BLOOD CELL 0.0 10*3/uL (0.0-0.0); PLATELET COUNT AUTOMATED 260 10*3/uL (130-400); RED CELL DISTRI WIDTH 15.0 % (0-14.5)
[2025-05-09 16:34] LABS: BUN 14.0 mg/dl (9-23)
[2025-05-09] MEDS ORDERED: ANTI-DIARRHEAL2 MG PO (16:42)
== END 2025-05-09 17:36 | disposition home or self-care (01) ==
LOC: ED 15:53
PROVIDERS: Emergency Medicine
DX: N17.9 Acute kidney failure, unspecified (principal); R19.7 Diarrhea, unspecified; E10.9 Type 1 diabetes mellitus without complications; I25.10 Atherosclerotic heart disease of native coronary artery without angina pectoris; K21.9 Gastro-esophageal reflux disease without esophagitis; E78.00 Pure hypercholesterolemia, unspecified; F17.200 Nicotine dependence, unspecified, uncomplicated; Z79.82 Long term (current) use of aspirin; Z79.899 Other long term (current) drug therapy; Z88.8 Allergy status to other drugs, medicaments and biological substances; Z98.890 Other specified postprocedural states

== ENCOUNTER 2025-05-27 14:47 | Emergency (ER) | payer OTHER ==
[~2025-05-27] VITALS: Wt 77.1 kg
[~2025-05-27 14:47] MED LIST changes: +ANTI-DIARRHEAL2 MG PO
[2025-05-27] MEDS ORDERED: SODIUM CHLORIDE 0.9% 1,000 ML IV ONE ×3 (15:00→17:15)
[2025-05-27] MEDS ORDERED: PROPOFOL 100 ML IV ONE (15:22)
[2025-05-27 15:29] LABS: ABG BASE EXCESS -1.8 mmol/L (-2.0-3.0); ABG O2 SATURATION 97.1 % (94.0-98.0); ARTERIAL BLOOD GAS PH 7.35 (7.350-7.450); ARTERIAL BLOOD GAS PO2 111.9 mmHg (83.0-108.0)
[2025-05-27 16:34] LABS: BASO # 0.0 10*3/uL (0.0-0.1); BASO % 0.2 % (0.0-1.0); EOS # 0.0 10*3/uL (0.0-0.4); EOS % 0.1 % (1.0-4.0); MEAN CELL VOLUME 93.2 fl (80.0-94.0); MEAN CORPUSCULAR HGB 29.6 pg (27.0-31.0); MEAN PLATELET VOLUME 9.7 fl (9.6-12.3); MONO # 1.5 10*3/uL (0.1-1.0); MONO % 8.1 % (3.0-9.0); NEUT # 14.4 10*3/uL (2.3-7.9); NEUT % 77.8 % (47.0-73.0); NUCLEATED RED BLOOD CELL 0.0 % (0.0-0.0); NUCLEATED RED BLOOD CELL 0.0 10*3/uL (0.0-0.0); PLATELET COUNT AUTOMATED 251 10*3/uL (130-400); RED CELL DISTRI WIDTH 16.8 % (0-14.5)
[2025-05-27 16:56] LABS: BUN 12 mg/dl (9-23)
[2025-05-27] MEDS ORDERED: POTASSIUM CHLORIDE 100 ML IV ONE (17:10)
[2025-05-27 18:18] LABS: BILIRUBIN Negative (Negative); BLOOD Negative (Negative); CLARITY Cloudy (Clear); COLOR Dark Yellow (Yellow); KETONE 1+ (Negative); LEUKO ESTERASE Trace (Negative); NITRITE Negative (Negative); PH 5.5 (4.5-8.0); SPECIFIC GRAVITY 1.025 (1.001-1.030); UROBILINOGEN 1.0 E.U./dl (0.0-1.0)
[2025-05-27 18:29] LABS: BACTERIA 1+; CALCIUM OXALATE CRYSTALS 2+; MUCOUS 2+
[2025-05-27] MEDS ORDERED: INSULIN LI100 UNIT/2 SQ (19:05)
[2025-05-27] MEDS ORDERED: Ondansetron4 MG PO (19:21)
[2025-05-27] MEDS ORDERED: NOREPINEPHRINE BITARTRATE/D5W 250 ML IV SCH (20:05)
[2025-05-27] MEDS ORDERED: ETOMIDATE 20 MG/10 ML VIAL IV ONE (20:40)
[2025-05-27] MEDS ORDERED: ROCURONIUM BROMIDE 50 MG/5 ML SYRINGE IV ONE (20:40)
[2025-05-27] MEDS ORDERED: PROPOFOL 50 ML IV ONE (22:13)
== END 2025-05-27 19:34 | disposition short-term general hospital (02) ==
LOC: ED 14:47
PROVIDERS: Emergency Medicine
DX: J96.91 Respiratory failure, unspecified with hypoxia (principal); A41.9 Sepsis, unspecified organism; J18.9 Pneumonia, unspecified organism; F17.210 Nicotine dependence, cigarettes, uncomplicated; Z98.890 Other specified postprocedural states

== ENCOUNTER 2025-07-11 07:05 | Emergency (ER) | payer OTHER ==
[~2025-07-11] VITALS: Ht 177.8 cm; Wt 81.6 kg
[~2025-07-11 07:05] MED LIST changes: +APLISOL5 TUB UNIT INTRADERM; +B121000 MCG/1 IM; +CEFEPIME2 GM/100 M IV; +INSULIN DE100 UNIT/1 SQ; +INSULIN LI100 UNIT/2 SQ; +VANC1PIG IV; +VITAMIN D325 MCG PO
[2025-07-11 07:18] VITALS: BP 115/55
[2025-07-11] MEDS ORDERED: DEXTROSE 50% 25 GM/50 ML SYR IV ONE ×2 (07:25→07:30)
[2025-07-11] MEDS ORDERED: SODIUM CHLORIDE 0.9% 1,000 ML IV ONE (07:25)
[2025-07-11 07:55] LABS: BASO # 0.0 10*3/uL (0.0-0.1); BASO % 0.3 % (0.0-1.0); EOS # 0.1 10*3/uL (0.0-0.4); EOS % 1.0 % (1.0-4.0); MEAN CELL VOLUME 96.2 fl (80.0-94.0); MEAN CORPUSCULAR HGB 29.4 pg (27.0-31.0); MEAN PLATELET VOLUME 10.5 fl (9.6-12.3); MONO # 0.5 10*3/uL (0.1-1.0); MONO % 7.1 % (3.0-9.0); NEUT # 6.0 10*3/uL (2.3-7.9); NEUT % 81.7 % (47.0-73.0); NUCLEATED RED BLOOD CELL 0.0 % (0.0-0.0); NUCLEATED RED BLOOD CELL 0.0 10*3/uL (0.0-0.0); PLATELET COUNT AUTOMATED 286 10*3/uL (130-400); RED CELL DISTRI WIDTH 17.2 % (0-14.5)
[2025-07-11 08:14] LABS: BUN 22 mg/dl (9-23)
[2025-07-11 08:15] LABS: ETHYL ALCOHOL < 3.0 mg/dl (<3)
[2025-07-11 12:42] VITALS: BP 121/65
== END 2025-07-11 12:34 | disposition home or self-care (01) ==
LOC: ED 07:05 → EDHOLD 11:43 → ED 12:34
PROVIDERS: Emergency Medicine
DX: E10.649 Type 1 diabetes mellitus with hypoglycemia without coma (principal); I10 Essential (primary) hypertension; E78.5 Hyperlipidemia, unspecified; F17.210 Nicotine dependence, cigarettes, uncomplicated; Z88.8 Allergy status to other drugs, medicaments and biological substances; Z79.899 Other long term (current) drug therapy; Z79.82 Long term (current) use of aspirin; Z79.4 Long term (current) use of insulin; Z87.442 Personal history of urinary calculi; Z98.890 Other specified postprocedural states; Z98.61 Coronary angioplasty status

== ENCOUNTER 2025-08-07 13:05 | Inpatient (IN) | payer OTHER ==
[~2025-08-07] VITALS: Ht 177.8 cm; Wt 68.0 kg
[~2025-08-07 13:05] MED LIST changes: +AMOXICILLIN500 M2 PO; +ERTAPENEM1 GM IV
[2025-08-07] MEDS ORDERED: DEXTROSE 10 % IN WATER 250 ML DEHP.FR.BG IV ONE (13:15)
[2025-08-07 13:27] LABS: BASO # 0.1 10*3/uL (0.0-0.1); BASO % 1.0 % (0.0-1.0); EOS # 0.2 10*3/uL (0.0-0.4); EOS % 2.5 % (1.0-4.0); MEAN CELL VOLUME 93.9 fl (80.0-94.0); MEAN CORPUSCULAR HGB 28.8 pg (27.0-31.0); MEAN PLATELET VOLUME 11.4 fl (9.6-12.3); MONO # 0.7 10*3/uL (0.1-1.0); MONO % 8.2 % (3.0-9.0); NEUT # 5.7 10*3/uL (2.3-7.9); NEUT % 71.4 % (47.0-73.0); NUCLEATED RED BLOOD CELL 0.0 % (0.0-0.0); NUCLEATED RED BLOOD CELL 0.0 10*3/uL (0.0-0.0); PLATELET COUNT AUTOMATED 267 10*3/uL (130-400); RED CELL DISTRI WIDTH 15.9 % (0-14.5)
[2025-08-07 13:28] VITALS: BP 96/47
[2025-08-07 13:55] LABS: BILIRUBIN Negative (Negative); BLOOD 1+ (Negative); CLARITY Cloudy (Clear); COLOR Yellow (Yellow); KETONE Negative (Negative); LEUKO ESTERASE 2+ (Negative); NITRITE Negative (Negative); PH 5.5 (4.5-8.0); SPECIFIC GRAVITY 1.020 (1.001-1.030); UROBILINOGEN 1.0 E.U./dl (0.0-1.0)
[2025-08-07 13:55] LABS: BUN 11 mg/dl (9-23)
[2025-08-07 14:03] LABS: BACTERIA 2+; RBC 21-30 rbc/hpf (0-2); WBC TNTC wbc/hpf (0-5); YEAST 1+
[2025-08-07] MEDS ORDERED: SODIUM CHLORIDE 0.9% 1,000 ML IV ONE (14:50)
[2025-08-07] MEDS ORDERED: SODIUM CHLORIDE 0.9% 1,000 ML IV SCH (15:50)
[2025-08-07] MEDS ORDERED: SODIUM CHLORIDE 0.9% 10 ML VIAL IV ONE (16:00)
[2025-08-07 20:00] VITALS: BP 119/77
[2025-08-08] MEDS ORDERED: INSULIN LISPRO 1 UNIT/0.01 ML SQ ONE (00:25)
[2025-08-08 05:30] VITALS: BP 98/56
[2025-08-08] MEDS ORDERED: FOAM BANDAGE 1 EACH BANDAGE T ONE (05:36)
[2025-08-08] MEDS ORDERED: FOAM BANDAGE HEEL T ONE (05:36)
[2025-08-08] MEDS ORDERED: Midodrine Hydrochloride 5 MG TAB PO SCH (06:00)
[2025-08-08] MEDS ORDERED: OMEPRAZOLE 20 MG CAP PO SCH (06:00)
[2025-08-08] MEDS ORDERED: REG INSULIN SC SCH (07:30)
[2025-08-08] MEDS ORDERED: INSULIN NPH HUM SC SCH (07:30)
[2025-08-08 08:00] VITALS: BP 119/61
[2025-08-08] MEDS ORDERED: SILVER SULFADIAZINE 25 GM TUBE T SCH (10:00)
[2025-08-08] MEDS ORDERED: APIXABAN 5 MG TAB PO SCH (10:00)
[2025-08-08] MEDS ORDERED: Amiodarone Hydrochloride 200 MG TAB PO SCH (10:00)
[2025-08-08] MEDS ORDERED: LIDOCAINE 5% ANORECTAL CREAM T SCH (10:00)
[2025-08-08] MEDS ORDERED: PREGABALIN 50 MG CAP PO SCH (10:00)
[2025-08-08] MEDS ORDERED: Vitamin D 1,000 IU TAB (25 MCG) PO SCH (10:00)
[2025-08-08] MEDS ORDERED: ASPIRIN ENTERIC COATED 81 MG TAB PO SCH (10:00)
[2025-08-08] MEDS ORDERED: LEVETIRACETAM 500 MG TAB PO SCH (10:00)
[2025-08-08 12:00] VITALS: BP 110/59
[2025-08-08] MEDS ORDERED: ATORVASTATIN CALCIUM 40 MG TABLET PO SCH (22:00)
[2025-08-10] MEDS ORDERED: CIPRO500 MG PO (20:09)
[2025-08-10] MEDS ORDERED: MACROBID100 M1 PO (20:09)
[2025-08-13] MEDS ORDERED: CEFDINIR300 MG PO (01:55)
== END 2025-08-08 13:35 | disposition home health service (06) | DRG 638 ==
LOC: ED 13:05 → EDHOLD 15:29 → 5E 15:29
PROVIDERS: Emergency Medicine; ADMIT Internal Medicine; ATTEND Internal Medicine
DX: E10.649 Type 1 diabetes mellitus with hypoglycemia without coma (principal); N39.0 Urinary tract infection, site not specified; N18.30 Chronic kidney disease, stage 3 unspecified; K29.70 Gastritis, unspecified, without bleeding; I25.10 Atherosclerotic heart disease of native coronary artery without angina pectoris; I95.1 Orthostatic hypotension; E55.9 Vitamin D deficiency, unspecified; K20.90 Esophagitis, unspecified without bleeding; E86.0 Dehydration; E10.22 Type 1 diabetes mellitus with diabetic chronic kidney disease; F17.210 Nicotine dependence, cigarettes, uncomplicated; Z88.8 Allergy status to other drugs, medicaments and biological substances; Z91.09 Other allergy status, other than to drugs and biological substances; Z79.899 Other long term (current) drug therapy; Z79.82 Long term (current) use of aspirin; Z79.4 Long term (current) use of insulin; Z95.1 Presence of aortocoronary bypass graft; Z82.49 Family history of ischemic heart disease and other diseases of the circulatory system; Z80.8 Family history of malignant neoplasm of other organs or systems; Z80.6 Family history of leukemia